=== PATIENT | female | born 1960 | race Caucasian/White ===

== ENCOUNTER 2017-01-28 08:27 | Inpatient (IN) ==
--- NOTE | 2017-01-27 19:59 | Discharge Summary ---
<MerrypatricialluviaNoemi Evon - Last Filed: 01/27/17 19:55> Date of Encounter: 01/27/17 - Discharge Diagnosis (1) Rotator cuff arthropathy Priority: Primary Status: Acute Qualifiers: Laterality: left Qualified Code(s): M12.812 - Other specific arthropathies , not elsewhere classified, left shoulder (2) HTN (hypertension) Priority: Secondary Status: Chronic Qualifiers: Hypertension type: essential hypertension Qualified Code(s): I10 - Essential (primary) hypertension (3) Obesity Priority: Secondary Status: Chronic Qualifiers: Obesity type: unspecified obesity type Obesity severity: unspecified obesity severity Qualified Code(s): E66.9 - Obesity, unspecified (4) Tobacco use Priority: Secondary Status: Chronic - Discharge Medications Home Medications: OxyCODONE Immed Rel [Roxicodone 5 MG] 5 - 10 mg PO Q6HR PRN #40 tablet 01/27/17 [Rx] Bupropion HCl [Wellbutrin Xl] 300 mg PO DAILY 01/28/17 [History] FLUoxetine HCl [Prozac] 40 mg PO DAILY 01/28/17 [History] Furosemide [Lasix] 20 mg PO DAILY 01/28/17 [History] Lisinopril [Zestril] 20 mg PO DAILY 01/28/17 [History] Metoprolol XL (24 HR) Succ [Toprol Xl] 50 mg PO DAILY 01/28/17 [History] Naproxen [Naprosyn] 500 mg PO BID 01/28/17 [History] hydrOXYzine HCl [Hydroxyzine HCl] 50 mg PO BID PRN 01/28/17 [History] Allergies/Adverse Reactions: Allergies No Known Allergies Allergy (Verified 01/28/17 09:03) Primary care physician: Finesse Dunlap MD - Patient Status Disposition: Home, Self-Care Condition: Good - Discharge Instructions Follow Up With: Finesse Dunlap MD [Primary Care Provider] - - Hospital Course Hospital course: Ms. Garcia is a 56 year old female - Time Spent with Patient Total time spent providing and/or coordinating discharge services: <Eddie Block - Last Filed: 01/29/17 06:25> Date of Encounter: 01/29/17 Time of Encounter: 06:25 - Discharge Diagnosis (1) Rotator cuff arthropathy Priority: Primary Status: Acute Qualifiers: Laterality: left Qualified Code(s): M12.812 - Other specific arthropathies , not elsewhere classified, left shoulder (2) HTN (hypertension) Priority: Secondary Status: Chronic Qualifiers: Hypertension type: essential hypertension Qualified Code(s): I10 - Essential (primary) hypertension (3) Obesity Priority: Secondary Status: Chronic Qualifiers: Obesity type: unspecified obesity type Obesity severity: unspecified obesity severity Qualified Code(s): E66.9 - Obesity, unspecified (4) Tobacco use Priority: Secondary Status: Chronic (5) Fracture 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 Garcia is a 56 year old female The patient had an uneventful postoperative course. They received antibiotics and physical therapy and were discharged in stable condition. There will follow -up in the office in 2 weeks. Aspirin DVT prophylaxis - Time Spent with Patient Total time spent providing and/or coordinating discharge services:
[2017-01-28] MEDS ORDERED: Albuterol 2.5 MG/3 ML NEBULIZER IH ONE (08:48)
[2017-01-28] MEDS ORDERED: CeFAZolin Pre 2,000 MG/100 ML 2,000 MG/100 ML BAG IVPB ONE (08:48)
[2017-01-28] MEDS ORDERED: Ringers Solution, Lactated 1,000 ML IVC SCH (09:00)
[2017-01-28] MEDS ORDERED: Famotidine 20 MG/2 ML VIAL IVP ONE (09:01)
[2017-01-28] MEDS ORDERED: Gabapentin 300 MG CAPSULE PO ONE (09:01)
--- NOTE | 2017-01-28 09:02 | History & Physical Report ---
Date of Encounter: 01/28/17 Time of Encounter: 09:02 24 Hour HP Update - Instructions Instructions: If the History and Physical is less than 30 days old and was completed prior to A.M. admission and or procedure and has NOT been updated on calendar day of procedure please complete this update prior to performing procedure. - Update Patient reports changes in Medical Condition: No Changes in examination, assessment, or condition: No Changes in Medication: No Preop tests/diagnostics Reviewed: Yes Surgery Remains Indicated: Yes Consent for Planned Operative Procedure(s) Verified: Yes - Pre-Operative Checklist Preoperative Checklist Indicated: No Prophylactic Antibiotic Ordered: Yes Is VTE Prophylaxis Indicated?: Yes
--- NOTE | 2017-01-28 09:28 | Anesthesia Evaluation PreOp ---
Date of Encounter: 01/28/17 Time of Encounter: 09:25 - Past History Planned Operation: Left Shoulder Replacement, Removal Hardware Cardiac History: HTN, Hyperlipidemia Pulmonary History: Denies Any Significant HX CAD DRAFTER History: Denies Any Significant HX Other Medical History: Other (Depression, Morbid Obesity, Bipolar) Anesthesia History: No Prior Anesthetic Complications : No Alcohol Use: none Drug use: none Medications and Allergies OxyCODONE Immed Rel [Roxicodone 5 MG] 5 - 10 mg PO Q6HR PRN #40 tablet 01/27/17 [Rx] Bupropion HCl [Wellbutrin Xl] 300 mg PO DAILY 01/28/17 [History] FLUoxetine HCl [Prozac] 40 mg PO DAILY 01/28/17 [History] Furosemide [Lasix] 20 mg PO DAILY 01/28/17 [History] Lisinopril [Zestril] 20 mg PO DAILY 01/28/17 [History] Metoprolol XL (24 HR) Succ [Toprol XL] 50 mg PO DAILY 01/28/17 [History] Naproxen [Naprosyn] 500 mg PO BID 01/28/17 [History] hydrOXYzine HCl [Hydroxyzine HCl] 50 mg PO BID PRN 01/28/17 [History] Allergies No Known Allergies Allergy (Verified 01/28/17 09:03) - Meds/Allergy Pre-op Review Medications Reviewed: Yes Allergies Reviewed: Yes Beta Blockers on Current Med List: Yes (Took Metoprolol today 0600) Anesthesia Results - Labs Laboratory Tests 01/21/17 01/21/17 10:51 10:51 Hgb 13.7 Hct 44.3 Plt Count 332 Sodium 136 Potassium 4.6 H BUN 21 H Creatinine 0.83 - Imaging EKG: report reviewed (SR) Anesthesia Exam O2 Sat Height 1.45 m Height 1.45 m Height 1.45 m Weight 83.461 kg Weight 83.461 kg Weight 83.461 kg O2 Sat by Pulse Oximetry 96 Vital Signs Temp Pulse Resp BP Pulse Ox 97.8 F 65 18 152/76 96 01/28/17 08:44 01/28/17 08:44 01/28/17 08:44 01/28/17 08:44 01/28/17 08:44 Height: 4'9 Weight: 186 lbs NPO (# of Hours): MN Pain Scale: 0 - HEENT Pupil (Motor): Pupils equal, EOMI Mallampati: II Teeth: Normal Oral Opening: Greater than 3 - CAD DRAFTER LOC: Oriented CAD DRAFTER Motor: Normal RUE, Normal LUE, Normal RLE, Normal LLE, Normal Face CAD DRAFTER Sensory: Normal: RUE, LUE, RLE, LLE, Face - Cardiac Rhythm: Regular Murmur: None JVD: No Carotid Bruit: No - Pulmonary Breath Sounds: bilateral Clear Respiratory Effort: Symmetrical Anesthesia Assess/Plan ASA Score: 3 (HTN Morbid Obesity Bipolar) Modified Kayleigh Scale for Level of Consciousness: Cooperative, oriented, and tranquil Anesthetic Plan: General, Regional Monitoring Plan: Standard Monitors Recovery Plan: PACU (Discussed GA and RA, agrees to proceed)
[2017-01-28] MEDS ORDERED: Tetracaine/PF 20 MG/2 ML AMPUL ONE (10:28)
[2017-01-28] MEDS ORDERED: ROPIVACAINE HCL/PF 0.5% 30 ML VIAL ONE (10:28)
[2017-01-28] MEDS ORDERED: Lidocaine -MPF 2% 2 ML VIAL ONE (11:27)
[2017-01-28] MEDS ORDERED: Dexamethasone 4 MG/ML VIAL ONE (11:27)
[2017-01-28] MEDS ORDERED: Ondansetron 4 MG/2 ML VIAL ONE (11:27)
[2017-01-28] MEDS ORDERED: EPHEDrine 50 MG/ML VIAL ONE (11:27)
[2017-01-28] MEDS ORDERED: *HR* Propofol 200 MG/20 ML VIAL IVP ONE (11:27)
--- NOTE | 2017-01-28 11:33 | Anesthesia Procedures ---
Date of Encounter: 01/28/17 Time of Encounter: 10:50 Procedures: Anesthesia - Nerve Block Procedure Date: 01/28/17 Time: 10:50 Allergies/Adv Reactions: nkda Pre-op Diagnosis: L shoulder RTC arthropathy Surgical Procedure: L TSR, Reverse--Removal of Hardware (synthetic) Checklist: Correct Patient Identifier, Correct procedure, History checked Correct side: Left Blood Thinner: No Monitor Applied: EKG, BP, Pulse Oximetry Supplemental Oxygen via Nasal Cannula (L/min): 3 Indication: Post Op Analgesia (requested by Dr. Block) Pre-op Neuro Deficits: No Block Type: Supraclavicular, Other (ICB, SCP) Catheter placed: No Sterile Technique: Yes Ultrasound used: Yes Anatomy identified: Yes Visual spread of Local: Yes Neuro Stimulation: No Blood on Needle Aspiration: No Smooth Injection of Local: Yes Pain with Injection of Local: No Prep: Chlorhexadine Needle: 22 x 50 mm Stimuplex Local: 0.25% Bupivicaine w/Clonidine 20 mcg/cc (10mL for SCP; 10mL of ICB), Tetracaine (2mL 1% for supraclavicular n.), Ropivacaine (30mL 0.5% for supraclavicular n.) Number of Attempts: 1 Complications: None/effective block Vitals: 3 Vital Signs Time pre-procedure post-procedure BP 140/64 137/68 Pulse 56 56 Resp 15 15 O2 Sat 99 99
[2017-01-28] MEDS ORDERED: Ondansetron 4 MG/2 ML VIAL IVP PRN ×2 (11:34→13:01)
[2017-01-28] MEDS ORDERED: *HR* Labetalol 100 MG/20 ML MDV IVP PRN (11:34)
[2017-01-28] MEDS ORDERED: *HR* HYDROmorphone (PF) 1 MG/ML SYRINGE IVP PRN ×2 (11:34→13:01)
--- NOTE | 2017-01-28 11:56 | Orthopedic Operative Note ---
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 1 6.5 screw, 36 central glenosphere, 5 humeral stem, poly insert 3 Exam Under anesthesia: Full motion no instability Procedural Notes: Patient had a malunion of the greater tuberosity with no cuff intact. Operative procedure: The patient was brought to the operating room and placed on the operating room table. After general anesthesia was administered the operative shoulder was examined. Findings were noted. The patient was placed in the modified beachchair position. All pressure points were padded appropriately. And the head was stabilized in the neutral position. The operative extremity was prepped and draped in the sterile surgical fashion. The patient received IV antibiotics prior to skin incision. A standard deltopectoral approach was made to the operative shoulder. Incision was made to the skin and subcutaneous tissue,hemo stasis was obtained with Bovie cautery. Using careful blunt dissection the cephalic vein was identified and mobilized medially. The deltopectoral interval was developed and the clavipectoral fascia was incised. Was brought into internal rotation the deltoid was elevated up through the interval between the deltoid and the humerus. Exposing the plate. All screws and the plate were removed without incident. Attention was then turned to the reverse shoulder replacement. The subscap was released off the lesser tuberosity and tagged with #2 FiberWire suture the subscap was irreparable. The humerus was dislocated patient noted to have irreparable tear supraspinatus tendon as well as a malunion of the greater tuberosity., and the humeral cut was made along the anatomic neck. Anterior and posterior Bankart retractors were placed to expose the glenoid. The glenoid guide was seated and the centering hole was made. It was reamed with the appropriate reamer. The small baseplate was seated and secured with (2) 4.5 screws and one 6.5 screw. The baseplate was irrigated and dried and the 36 central Glenosphere was seated and secured with the Myrick taper. The Myrick taper was tested and found to be secure the humerus was redislocated and prepared with the diaphyseal reamers, followed by a broaching process up to the appropriate size 5 in the patient's anatomic version. The metaphyseal reamer was then utilized. Trial reduction found the shoulder to be relocatable. Trial components were removed. The appropriate 5 stem was impacted in place in the patient's anatomic version. Trial reduction found the shoulder to be relocatable and stable with the appropriate 3 Trial component was removed and the 3 Daxa was seated and secured the shoulder was reduced. The shoulder had excellent motion and excellent stability and no evidence of dislocation. The deep tissue was irrigated with pulse irrigation. The deltopectoral interval was closed with a running #1 PDS suture, subcutaneous tissue was irrigated and closed with 0 PDS suture, the skin was closed with Dermabond. The patient was placed in a sterile dressing, abduction brace and extubated. The patient was then transferred to the recovery room in stable condition. Anesthesia: AJAY Surgeon: Eddie Block Ironer Or Presser: Noemi Adhikari Condition: stable Disposition: PACU
[2017-01-28] MEDS: Ringers Solution, Lactated 1,000 ML IVC SCH ×2 (12:50→16:23)
[2017-01-28 12:52] LABS: Hematocrit 34.8 % (35.3-44.9)
--- NOTE | 2017-01-28 12:58 | Anesthesia Evaluation Post Op ---
Date of Encounter: 01/28/17 Time of Encounter: 13:00 - Vital Signs Vital Signs: Vital Signs/O2 Sat/Glucose, Most Current Temp Pulse Resp BP Pulse Ox 01/28/17 12:41 97.9 F 57 16 117/66 94 01/28/17 12:31 61 16 136/93 93 01/28/17 12:21 58 16 128/65 95 01/28/17 12:11 98.4 F 65 18 137/87 94 01/28/17 10:55 55 16 137/68 100 01/28/17 10:46 53 16 140/64 100 01/28/17 10:35 58 18 130/75 100 - Lungs Lungs: Clear Ascult./Percussion - Airway Airway: Non-obstructed - Cardiovascular Regular Rate - Mental Status Mental Status: Alert & Oriented, Answers Appropriately - Pain Pain Scale: 0 - Nausea Vomiting Nausea Vomiting: Not Present - Hydration Hydration: Ice chips - Discharge PostOp Status: Transfer Patient to floor
[2017-01-28] MEDS ORDERED: MOM Conc 10 ML UD.LIQ PO PRN (13:01)
[2017-01-28] MEDS ORDERED: *HR* OxyCODONE Immed Rel 5 MG TABLET PO PRN (13:01)
[2017-01-28] MEDS ORDERED: hydrOXYzine pamoate 25 MG CAPSULE PO PRN (13:01)
[2017-01-28] MEDS ORDERED: Temazepam 15 MG CAPSULE PO PRN (13:01)
[2017-01-28] MEDS ORDERED: Sennosides 8.6 MG TABLET PO PRN (13:01)
[2017-01-28] MEDS ORDERED: Naloxone 0.4 MG/ML INJ IVP PRN (13:01)
[2017-01-28] MEDS: ceFAZolin 2,000 MG in D5% in Water 100 ML IVPB SCH (16:20)
[2017-01-28] MEDS ORDERED: *HR* Enoxaparin 30 MG/0.3 ML SYRINGE SQ SCH (18:00)
[2017-01-28] MEDS: *HR* Enoxaparin 30 MG/0.3 ML SYRINGE SQ SCH (18:01)
[2017-01-29] MEDS: ceFAZolin 2,000 MG in D5% in Water 100 ML IVPB SCH (00:13)
[2017-01-29 05:01] LABS: Hematocrit 32.9 % (35.3-44.9); Hemoglobin 10.7 g/dL (11.5-15.4)
[2017-01-29] MEDS: *HR* Enoxaparin 30 MG/0.3 ML SYRINGE SQ SCH (06:17)
[2017-01-29] MEDS: Ringers Solution, Lactated 1,000 ML IVC SCH (06:19)
--- NOTE | 2017-01-29 06:26 | Orthopedics Progress Note ---
Date of Encounter: 01/29/17 Time of Encounter: 06:26 - Assessment and Plan (1) Rotator cuff arthropathy Current Visit: Yes Status: Acute Qualifiers: Laterality: left Qualified Code(s): M12.812 - Other specific arthropathies , not elsewhere classified, left shoulder (2) HTN (hypertension) Current Visit: Yes Status: Chronic Qualifiers: Hypertension type: essential hypertension Qualified Code(s): I10 - Essential (primary) hypertension (3) Obesity Current Visit: Yes Status: Chronic Qualifiers: Obesity type: unspecified obesity type Obesity severity: unspecified obesity severity Qualified Code(s): E66.9 - Obesity, unspecified (4) Tobacco use Current Visit: Yes Status: Chronic (5) Fracture of proximal end of left humerus with malunion Current Visit: Yes Status: Acute Qualifiers: Encounter type: subsequent encounter Fracture type: closed Fracture morphology: other fracture Fracture alignment: displaced Qualified Code(s): S42.292P - Other displaced fracture of upper end of left humerus, subsequent encounter for fracture with malunion Subjective Interval history: Patient was seen this morning doing well without complaints. Afebrile vital signs stable. Operative extremity: Neurovascularly intact Dressing clean dry and intact Calves nontender Assessment and plan: Continue with postoperative care Hematocrit 32.9 discharged today Objective Vital signs: Vital Signs Temp Pulse Resp BP Pulse Ox 01/29/17 05:01 98.4 F 59 18 137/76 97 01/28/17 23:27 98.4 F 67 16 135/67 97 01/28/17 21:19 96 01/28/17 18:36 98.1 F 64 17 138/80 96 01/28/17 15:50 98 F 60 16 126/74 97 01/28/17 14:50 97.5 F L 63 16 128/77 95 01/28/17 13:50 97.8 F 59 16 110/76 95 01/28/17 13:20 97.7 F 58 16 116/72 95 01/28/17 12:50 97.9 F 58 16 121/58 96 01/28/17 12:41 97.9 F 57 16 117/66 94 01/28/17 12:31 61 16 136/93 93 01/28/17 12:21 58 16 128/65 95 01/28/17 12:11 98.4 F 65 18 137/87 94 01/28/17 10:55 55 16 137/68 100 01/28/17 10:46 53 16 140/64 100 01/28/17 10:35 58 18 130/75 100 01/28/17 08:44 97.8 F 65 18 152/76 96 Intake and Output 01/28/17 01/28/17 01/29/17 15:59 23:59 07:59 Intake Total 300 / 300 Output Total 100 / 100 Balance -100 / -100 300 / 300 Intake: IV Fluids 300 / 300 Lactated Ringers 1,000 ML 200 / 200 @ 75 mls/hr IVC .[id number] AALIYAH Rx#:[id number] Ancef 2,000 MG In 100 / 100 Dextrose 5% 100 ML @ 200 mls/hr IVPB Q8HR AALIYAH Rx#: [id number] Output: Estimated Blood Loss 100 / 100 Other: # Voids 1 1 Weight 83.461 kg - Labs CBC & BMP: 01/29/17 04:21 Labs: Abnormal lab results Hgb 10.7 g/dL (11.5-15.4) L 01/29/17 04:21 Hct 32.9 % (35.3-44.9) L 01/29/17 04:21 - VTE Documentation of Mechanical Device: Venous foot pump, device Consult Discharge Plan - Plan Referrals: Finesse Dunlap MD [Primary Care Provider] -
[2017-01-29 07:24] VITALS: BP 132/82
[2017-01-29] MEDS: *HR* OxyCODONE Immed Rel 5 MG TABLET PO PRN ×2 (08:41→12:42)
[2017-01-29] MEDS ORDERED: Metoprolol XL (24 HR) Succ 50 MG TAB.ER.24H PO SCH (09:00)
[2017-01-29] MEDS ORDERED: BuPROPion XL (24 HR) 150 MG TABLET PO SCH (09:00)
[2017-01-29] MEDS ORDERED: FLUoxetine 20 MG CAPSULE PO SCH (09:00)
[2017-01-29] MEDS ORDERED: Lisinopril 20 MG TABLET PO SCH (09:00)
[2017-01-29] MEDS ORDERED: Furosemide 20 MG TABLET PO SCH (09:00)
== END 2017-01-29 12:57 | disposition home or self-care (01) | DRG 483 ==
LOC: SAMDAY 08:27 → 3NENU 12:45
PROVIDERS: ADMIT Orthopaedic Surgery; ATTEND Orthopaedic Surgery

== ENCOUNTER 2017-09-12 11:42 | Inpatient (IN) ==
--- NOTE | 2017-09-12 08:11 | Discharge Summary ---
Date of Encounter: 09/13/17 Time of Encounter: 06:25 - Discharge Diagnosis (1) Loosening of total shoulder replacement Priority: Primary Status: Acute Qualifiers: Encounter type: subsequent encounter Qualified Code(s): T84.038D - Mechanical loosening of other internal prosthetic joint, subsequent encounter; Z96.619 - Presence of unspecified artificial shoulder joint; Z96.619 - Presence of unspecified artificial shoulder joint (2) Status post total shoulder arthroplasty Priority: Secondary Status: Acute Qualifiers: Laterality: left Qualified Code(s): Z96.612 - Presence of left artificial shoulder joint (3) HTN (hypertension) Priority: Secondary Status: Chronic Qualifiers: Hypertension type: essential hypertension Qualified Code(s): I10 - Essential (primary) hypertension (4) Tobacco use Priority: Secondary Status: Chronic (5) Obesity (BMI 35.0-39.9 without comorbidity) Priority: Secondary Status: Chronic - Discharge Medications Home Medications: Bupropion HCl [Wellbutrin Xl] 300 mg PO DAILY 01/28/17 [History] Furosemide [Lasix] 20 mg PO DAILY 01/28/17 [History] Lisinopril [Zestril] 20 mg PO DAILY 01/28/17 [History] Metoprolol XL (24 HR) Succ [Toprol Xl] 50 mg PO DAILY 01/28/17 [History] hydrOXYzine HCl [Hydroxyzine HCl] 50 mg PO BID PRN 01/28/17 [History] FLUoxetine HCl [Fluoxetine HCl] 40 mg PO DAILY 09/12/17 [History] Gabapentin [Neurontin] 100 mg PO TID 09/12/17 [History] OxyCODONE Immed Rel [Roxicodone 5 MG] 5 mg PO Q4HR PRN #24 tablet 09/12/17 [Rx] Quetiapine Fumarate [Seroquel] 50 mg PO DAILY 09/12/17 [History] Allergies/Adverse Reactions: 3 Allergy/AdvReac Type Severity Reaction Status Date / Time No Known Allergies Allergy Verified 09/12/17 12:03 Primary care physician: Finesse Dunlap MD - Patient Status Disposition: Home, Self-Care Condition: Good Functional capacity at discharge: independent ambulation Overall status at discharge: patient is progressing back to baseline - Discharge Instructions Follow Up With: Finesse Dunlap MD [Primary Care Provider] - - Hospital Course Hospital course: Ms. Garcia is a 57 year old female Status post revision left shoulder surgery The patient had an uneventful postoperative course. They received antibiotics and physical therapy and were discharged in stable condition. There will follow -up in the office in 2 weeks. - Time Spent with Patient Total time spent providing and/or coordinating discharge services:
--- NOTE | 2017-09-12 11:54 | Anesthesia Evaluation PreOp ---
Date of Encounter: 09/12/17 Time of Encounter: 12:15 - Past History Planned Operation: left total shoulder revision Cardiac History: HTN, Hyperlipidemia Pulmonary History: Smoker STOCKBROKING DEALER History: Other (bipolar) Other Medical History: Other (morbid obesity) Anesthesia History: No Prior Anesthetic Complications, Past Anesthesia (left TSA ) : No Alcohol Use: none Drug use: none Medications and Allergies Bupropion HCl [Wellbutrin Xl] 300 mg PO DAILY 01/28/17 [History] Furosemide [Lasix] 20 mg PO DAILY 01/28/17 [History] Lisinopril [Zestril] 20 mg PO DAILY 01/28/17 [History] Metoprolol XL (24 HR) Succ [Toprol Xl] 50 mg PO DAILY 01/28/17 [History] hydrOXYzine HCl [Hydroxyzine HCl] 50 mg PO BID PRN 01/28/17 [History] FLUoxetine HCl [Fluoxetine HCl] 40 mg PO DAILY 09/12/17 [History] Gabapentin [Neurontin] 100 mg PO TID 09/12/17 [History] OxyCODONE Immed Rel [Roxicodone 5 MG] 5 mg PO Q4HR PRN #24 tablet 09/12/17 [Rx] Quetiapine Fumarate [Seroquel] 50 mg PO DAILY 09/12/17 [History] 3 Allergy/AdvReac Type Severity Reaction Status Date / Time No Known Allergies Allergy Verified 09/12/17 12:03 - Meds/Allergy Pre-op Review Medications Reviewed: Yes Allergies Reviewed: Yes Beta Blockers on Current Med List: Yes Anesthesia Results - Labs Laboratory Tests 09/10/17 09/10/17 09/10/17 11:22 11:22 11:22 Hgb 13.1 Hct 41.9 Plt Count 456 H PT 11.9 INR 1.1 APTT 29.1 Sodium 139 Potassium 3.9 BUN 16 Creatinine 0.68 Anesthesia Exam - HEENT Pupil (Motor): EOMI Mallampati: II Teeth: Normal Oral Opening: Greater than 3 - STOCKBROKING DEALER LOC: Oriented STOCKBROKING DEALER Motor: Normal RUE, Normal LUE, Normal RLE, Normal LLE, Normal Face STOCKBROKING DEALER Sensory: Normal: RUE, LUE, RLE, LLE, Face - Cardiac Rhythm: Regular Murmur: None - Pulmonary Breath Sounds: bilateral Clear Respiratory Effort: Symmetrical Anesthesia Assess/Plan ASA Score: 3 Modified Kayleigh Scale for Level of Consciousness: Cooperative, oriented, and tranquil Anesthetic Plan: General (with block) Monitoring Plan: Standard Monitors Recovery Plan: PACU (agrees to GA and block)
[2017-09-12] MEDS ORDERED: Lidocaine -MPF 2% 2 ML VIAL ONE (12:03)
[2017-09-12] MEDS ORDERED: Ondansetron 4 MG/2 ML VIAL ONE (12:03)
[2017-09-12] MEDS ORDERED: *HR* Succinylcholine 200 MG/10 ML VIAL IVP ONE (12:03)
[2017-09-12] MEDS ORDERED: *HR* FentaNYL (PF) 100 MCG/2 ML VIAL ONE (12:03)
[2017-09-12] MEDS ORDERED: *HR* Propofol 200 MG/20 ML VIAL IVP ONE (12:03)
[2017-09-12] MEDS ORDERED: *HR* Midazolam HCl 2 MG/2 ML VIAL ONE (12:03)
[2017-09-12] MEDS ORDERED: CeFAZolin Syr 2,000MG/20 ML 2,000 MG/20 ML SYRINGE IVPB ONE (12:04)
[2017-09-12] MEDS ORDERED: Dexamethasone 4 MG/ML VIAL ONE ×2 (12:05→14:44)
[2017-09-12] MEDS ORDERED: Bupivacaine/Clonidine Syringe 1 EACH SYRINGE ONE (12:08)
[2017-09-12] MEDS ORDERED: ROPIVACAINE HCL/PF 0.5% 30 ML VIAL ONE (12:08)
[2017-09-12] MEDS ORDERED: Ringers Solution, Lactated 1,000 ML IVC SCH ×2 (12:15→17:00)
[2017-09-12] MEDS ORDERED: *HR* Promethazine 25 MG/ML VIAL IVP PRN (12:17)
[2017-09-12] MEDS ORDERED: *HR* HYDROmorphone (PF) 1 MG/ML SYRINGE IVP PRN ×2 (12:17→17:00)
[2017-09-12] MEDS ORDERED: Ethanol\\Acetic Acid\\Na Ace\\Ben 1,000 ML IRRIG.SOLN IR ONE (12:25)
--- NOTE | 2017-09-12 12:36 | History & Physical Report ---
Date of Encounter: 09/12/17 Time of Encounter: 12:35 24 Hour HP Update - Instructions Instructions: If the History and Physical is less than 30 days old and was completed prior to A.M. admission and or procedure and has NOT been updated on calendar day of procedure please complete this update prior to performing procedure. - Update Patient reports changes in Medical Condition: No Changes in examination, assessment, or condition: No Changes in Medication: No Preop tests/diagnostics Reviewed: Yes Surgery Remains Indicated: Yes Consent for Planned Operative Procedure(s) Verified: Yes - Pre-Operative Checklist Preoperative Checklist Indicated: No Prophylactic Antibiotic Ordered: Yes Is VTE Prophylaxis Indicated?: Yes
--- NOTE | 2017-09-12 13:38 | Anesthesia Procedures ---
Date of Encounter: 09/12/17 Time of Encounter: 13:30 Procedures: Anesthesia - Nerve Block Procedure Date: 09/12/17 Time: 13:30 Surgical Procedure: left total shoulder revision Checklist: Correct Patient Identifier, Correct procedure, History checked Correct side: Left Blood Thinner: No Monitor Applied: EKG, BP, Pulse Oximetry Supplemental Oxygen via Nasal Cannula (L/min): 2 Sedation: Versed (mg): 2 Sedation: Fentanyl (mcg): 100 Indication: Post Op Analgesia Pre-op Neuro Deficits: No Block Type: Supraclavicular, Other (ICB/ICP) Catheter placed: No Sterile Technique: Yes Ultrasound used: Yes Anatomy identified: Yes Visual spread of Local: Yes Neuro Stimulation: Yes Nerve Stimulator Range: 0.2 - 0.4 mA Blood on Needle Aspiration: No Smooth Injection of Local: Yes Pain with Injection of Local: No Prep: Chlorhexadine Needle: 22 x 50 mm Stimuplex Local: 0.25% Bupivicaine w/Clonidine 20 mcg/cc (10 ml), Ropivacaine (0.5% with 8 of decadron) Volume (cc): 40 total Number of Attempts: 1 Complications: None/effective block Vitals: vss
[2017-09-12] MEDS ORDERED: Albuterol 2.5 MG/3 ML NEBULIZER ONE (13:47)
[2017-09-12] MEDS ORDERED: Lidocaine -MPF 4% 5 ML AMPUL ONE (14:44)
[2017-09-12] MEDS ORDERED: EPHEDrine 50 MG/ML VIAL ONE (15:05)
[2017-09-12] MEDS ORDERED: Ketorolac 30 MG/ML VIAL ONE (15:31)
--- NOTE | 2017-09-12 15:50 | Orthopedic Operative Note ---
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 Post-op diagnosis: same (Significant glenoid insufficiency posterior superior) Procedure: Procedure: Revision left total shoulder replacement reverse to left cuff tear arthropathy hemiarthroplasty Estimated blood loss: 100 cc Hardware: Metal and polyethylene replacement: 6 humeral stem, 36 neutral cup, 36 CA humeral head adapter, 44 x 17 cuff tear arthropathy head. Exam Under anesthesia: Full motion with no stability Procedural Notes: Patient with loose glenoid complete posterior superior insufficiency of glenoid, glenoid unable to support a new glenoid baseplate. Operative procedure: The patient was brought to the operating room and placed on the operating room table. After general anesthesia was administered the operative shoulder was examined. Findings were noted. The patient was placed in the modified beachchair position. All pressure points were padded appropriately. And the head was stabilized in the neutral position. The operative extremity was prepped and draped in the sterile surgical fashion. The patient received IV antibiotics prior to skin incision. A standard deltopectoral approach was made to the operative shoulder. Incision was made through the old incision, through the skin and subcutaneous tissue, hemo stasis was obtained with Bovie cautery. Using careful blunt dissection the deltopectoral interval was developed, the scar tissue around the prosthesis was excised cultures were obtained. The humerus was dislocated and the humeral component was removed without significant difficulty. The clonus or was removed , the glenoid baseplate the baseplate was loose inferior screws broken. Baseplate and superior screw removed without incident as well as a central screw. Patient had a large cavitary defect posterior superior. Extensive soft tissue debridement was performed. An attempt was made to reposition the baseplate inferiorly fluoroscopic confirmation of the position the baseplate found to be insufficient for support and longevity. This is also confirmed with direct inspection. Decision at this point was made to convert to a cuff tear arthropathy head to avoid further glenoid failure. The bladder was irrigated and the defect was packed with DBX putty. The humerus was broached to a 6 in 20 degrees retroversion trial reduction with the 44 x 17 head revealed good stability trials were removed real implants were impacted in place shoulder was reduced patient good stability. The deep tissue was irrigated with pulse irrigation with Betadine as well as an antibacterial solution. T The deltopectoral interval was closed with a running #1 PDS suture, subcutaneous tissue was irrigated and closed with 0 PDS suture, the skin was closed with skin scooby. The patient was placed in a sterile dressing, abduction brace and extubated. The patient was then transferred to the recovery room in stable condition. Anesthesia: GETA Surgeon: Eddie Block Was there an family practice physician assistant present: No Estimated blood loss (cc): 100 Condition: stable Disposition: PACU
--- NOTE | 2017-09-12 16:23 | Anesthesia Evaluation Post Op ---
Date of Encounter: 09/12/17 Time of Encounter: 16:22 - Vital Signs Vital Signs: Vital Signs/O2 Sat, Most Current Temp Pulse Resp BP Pulse Ox 97.7 F 66 15 121/78 94 09/12/17 15:55 09/12/17 16:10 09/12/17 16:10 09/12/17 16:10 09/12/17 16:10 - Airway Airway: Non-obstructed - Cardiovascular Regular Rate - Mental Status Mental Status: Alert & Oriented, Answers Appropriately - Pain Pain Scale: 0 Pain Scale used: Numeric (1 - 10) - Nausea Vomiting Nausea Vomiting: Not Present - Hydration Hydration: Ice chips, Has not voided - Discharge PostOp Status: Transfer Patient to floor
[2017-09-12] MEDS ORDERED: MOM Conc 10 ML UD.LIQ PO PRN (17:00)
[2017-09-12] MEDS ORDERED: Sennosides 8.6 MG TABLET PO PRN (17:00)
[2017-09-12] MEDS ORDERED: *HR* OxyCODONE Immed Rel 5 MG TABLET PO PRN ×2 (17:00)
[2017-09-12] MEDS ORDERED: hydrOXYzine pamoate 25 MG CAPSULE PO PRN (17:00)
[2017-09-12] MEDS ORDERED: Naloxone 0.4 MG/ML INJ IVP PRN (17:00)
[2017-09-12] MEDS ORDERED: Ondansetron 4 MG/2 ML VIAL IVP PRN (17:00)
[2017-09-12] MEDS ORDERED: Temazepam 15 MG CAPSULE PO PRN (17:00)
[2017-09-12] MEDS ORDERED: *HR* Enoxaparin 30 MG/0.3 ML SYRINGE SQ SCH (18:00)
[2017-09-12] MEDS: *HR* Enoxaparin 30 MG/0.3 ML SYRINGE SQ SCH (18:22)
[2017-09-12] MEDS: Gabapentin 100 MG CAPSULE PO SCH ×2 (18:22→21:24)
[2017-09-12] MEDS: CeFAZolin Premix DUPLEX 2,000 MG/50 ML BAG IVPB SCH (21:25)
[2017-09-13] MEDS: *HR* Enoxaparin 30 MG/0.3 ML SYRINGE SQ SCH (04:51)
[2017-09-13] MEDS: CeFAZolin Premix DUPLEX 2,000 MG/50 ML BAG IVPB SCH (04:52)
--- NOTE | 2017-09-13 06:27 | Orthopedics Progress Note ---
Date of Encounter: 09/13/17 Time of Encounter: 06:26 - Assessment and Plan (1) Loosening of total shoulder replacement Current Visit: Yes Status: Acute Qualifiers: Encounter type: subsequent encounter Qualified Code(s): T84.038D - Mechanical loosening of other internal prosthetic joint, subsequent encounter; Z96.619 - Presence of unspecified artificial shoulder joint; Z96.619 - Presence of unspecified artificial shoulder joint (2) Status post total shoulder arthroplasty Current Visit: Yes Status: Acute Qualifiers: Laterality: left Qualified Code(s): Z96.612 - Presence of left artificial shoulder joint (3) HTN (hypertension) Current Visit: No Status: Chronic Qualifiers: Hypertension type: essential hypertension Qualified Code(s): I10 - Essential (primary) hypertension (4) Tobacco use Current Visit: No Status: Chronic (5) Obesity (BMI 35.0-39.9 without comorbidity) Current Visit: Yes Status: Chronic Subjective Interval history: Patient was seen this morning doing well without complaints. Afebrile vital signs stable. Operative extremity: Neurovascularly intact Dressing clean dry and intact Calves nontender Assessment and plan: Continue with postoperative care Discharge today Objective Vital signs: Vital Signs Temp Pulse Resp BP Pulse Ox 09/13/17 04:52 97.4 F L 76 18 128/78 96 09/13/17 00:20 97.8 F 68 18 116/69 92 09/12/17 19:45 98.3 F 78 16 122/76 96 09/12/17 19:09 97.7 F 70 17 115/71 94 09/12/17 18:52 98.6 F 74 17 108/73 93 09/12/17 17:50 97.6 F 70 15 129/82 93 09/12/17 17:23 97.9 F 71 16 129/76 95 09/12/17 17:11 97.9 F 71 16 129/76 95 09/12/17 16:54 97.7 F 70 14 128/76 94 09/12/17 16:30 98.0 F 69 16 113/71 96 09/12/17 16:20 98.0 F 66 14 111/76 95 09/12/17 16:10 66 15 121/78 94 09/12/17 16:00 67 18 136/63 92 09/12/17 15:55 97.7 F 73 20 151/82 97 09/12/17 14:11 74 168/90 98 09/12/17 13:59 77 153/101 95 09/12/17 13:44 74 14 158/105 93 09/12/17 13:14 68 16 136/98 96 09/12/17 12:07 99.0 F 69 18 130/68 95 09/12/17 12:06 99.0 F 69 18 130/68 95 Intake and Output 09/12/17 09/12/17 09/13/17 15:59 23:59 07:59 Intake Total 50 / 50 Output Total 100 / 100 Balance -100 / -100 50 / 50 Intake: IV Fluids 50 / 50 Ancef Premix DUPLEX 2,000 mg In 50 / 50 50 ml @ 100 mls/hr IVPB Q8H [facility] Rx#:[id number] Output: Estimated Blood Loss 100 / 100 Other: Weight 80.286 kg - Labs CBC & BMP: 09/12/17 16:21 - VTE Documentation of Mechanical Device: Venous foot pump, device Consult Discharge Plan - Plan Referrals: Finesse Dunlap MD [Primary Care Provider] -
[2017-09-13 08:40] LABS: Hematocrit 34.5 % (35.3-44.9); Hemoglobin 10.8 g/dL (11.5-15.4)
[2017-09-13] MEDS: Gabapentin 100 MG CAPSULE PO SCH (08:53)
[2017-09-13] MEDS ORDERED: Lisinopril 20 MG TABLET PO SCH (09:00)
[2017-09-13] MEDS ORDERED: Metoprolol XL (24 HR) Succ 50 MG TAB.ER.24H PO SCH (09:00)
[2017-09-13] MEDS ORDERED: FLUoxetine 20 MG CAPSULE PO SCH (09:00)
[2017-09-13] MEDS ORDERED: Furosemide 20 MG TABLET PO SCH (09:00)
[2017-09-13] MEDS ORDERED: BuPROPion XL (24 HR) 150 MG TABLET PO SCH (09:00)
[2017-09-13 11:11] VITALS: BP 110/74
== END 2017-09-13 12:11 | disposition home or self-care (01) | DRG 483 ==
LOC: SAMDAY 11:42 → 3NENU 17:04
PROVIDERS: ADMIT Orthopaedic Surgery; ATTEND Orthopaedic Surgery

== ENCOUNTER 2017-11-21 10:51 | Inpatient (IN) ==
--- NOTE | 2017-11-21 11:06 | Emergency Department Note ---
Disposition Clinical Impression: NSTEMI (non-ST elevated myocardial infarction), Respiratory distress, Bilateral pneumonia, Pleural effusion, Hypokalemia, Hypoxia Disposition: Admitted As Inpatient Condition: Fair Time of Disposition: 15:02 General Adult HPI - General Chief complaint: ED Chest Pain Stated complaint: Chest pain Time Seen by Provider: 11/21/17 10:56 Source: patient, EMS Mode of arrival: EMS Limitations: no limitations Nursing Notes Reviewed: Yes Vital Signs Reviewed: Yes - History of Present Illness HPI Narrative: 57-year-old female with significant past medical history of hypertension and tobacco abuse presenting to the emergency Department chief complaint of chest pain and shortness of breath. Patient states for the last week she has not been feeling well. She has been weak, had increased shortness of breath, fevers and chills. She has also had chest pain on exertion. Today she acutely started having more chest pain and worsening shortness of breath and decided to come to the emergency department for further evaluation. Patient denies any cardiac history. Denies any COPD or asthma. Denies needing oxygen at home. Pain Scale: 4 - Related Data Home Medications Medication Instructions Recorded Confirmed Bupropion HCl [Wellbutrin Xl] 300 mg PO DAILY 01/28/17 11/21/17 Furosemide [Lasix] 20 mg PO DAILY 01/28/17 11/21/17 Lisinopril [Zestril] 20 mg PO BID 01/28/17 11/21/17 Metoprolol XL (24 HR) Succ [Toprol 50 mg PO DAILY 01/28/17 11/21/17 Xl] hydrOXYzine HCl [Hydroxyzine HCl] 50 mg PO BID PRN 01/28/17 11/21/17 FLUoxetine HCl [Fluoxetine HCl] 40 mg PO DAILY 09/12/17 11/21/17 Gabapentin [Neurontin] 100 mg PO TID 09/12/17 11/21/17 Amoxicillin/Clavulanate [Augmentin] 875 mg PO BIDWM 11/21/17 11/21/17 Quetiapine Fumarate [SEROquel] 100 mg PO HS 11/21/17 11/21/17 Allergies Allergy/AdvReac Type Severity Reaction Status Date / Time No Known Allergies Allergy Verified 11/21/17 12:09 All systems ED: reviewed and negative except as stated. Constitutional: Reports: fever, chills, weakness Cardiovascular: Reports: chest pain Respiratory: Reports: cough, dyspnea Neurological: Reports: weakness Past Medical History - Past Medical History Attestation: Yes The following information was validated with the patient. Medical history: Reports: hypertension, other Surgical history: Reports: , cataract Psychiatric history: Reports: anxiety, bipolar, depression - Social History Smoking Status: Never smoker Smokeless Tobacco Status: No Alcohol use: Reports: none Drug use: Reports: none Physical Exam - General Limitations: no limitations General appearance: alert, in distress - Head Head exam: atraumatic, normocephalic, normal inspection - Eye Eye exam: Present: normal appearance. Absent: scleral icterus, conjunctival injection - ENT ENT exam: mucous membranes dry - Neck Neck exam: Present: normal inspection, full ROM. Absent: tenderness, meningismus - Chest Chest inspection: Present: normal inspection, symmetric chest wall rise. Absent : tenderness, rash - Respiratory Respiratory exam: Present: other (Decreased breath sounds bilaterally) - Cardiovascular Cardiovascular exam: Present: normal rhythm, tachycardia, normal heart sounds - Abdominal Exam Abdominal exam: Present: soft, Non-Tender. Absent: distention, guarding, rebound - Extremities Exam Extremities exam: Present: normal inspection, full ROM - Neurological Exam Neurological exam: Present: alert, oriented X3 - Psychiatric Psychiatric exam: Present: normal affect, normal mood - Skin Skin exam: Present: warm, dry Course Course Narrative: 57-year-old male presenting to the emergency Department chief complaint of chest pain and shortness of breath. Upon presentation patient was hypoxic at 85 %. Patient placed on Ventimask. 15 L. He should not went up to mid 90s. Patient tachycardic upon arrival. EKG shows no acute changes. Basic laboratory analysis including CBC, BMP, troponin, BNP completed. Chest x-ray also completed. Patient did have decreased breath sounds on examination and do an absent were given. Patient received full dose aspirin and 1 nitroglycerin and EMS. Patient's troponin elevated at 0.51. Repeat troponin completed an elevated more at 0.6. I spoke directly with tea tree farm worker on-call Dr. Bermudez who is aware of the case. He states since the patient is not having any active chest pain at this time no nitro drip as needed. He will not take the patient to Table Inspector at this time. Patient started on heparin drip. Patient has chest pain when she becomes active or exerts herself and sitting on the cot she has no chest pain at this time. Patient remained mildly hypoxic even with Ventimask. Patient agreed to try BiPAP. Patient placed on BiPAP and did well. ABG completed and showed mild alkalosis. Patient was taken off BiPAP and placed back on Ventimask at 12 L. Patient also hypokalemic her laboratory analysis. We will replete her via peripheral IV. Chest x-ray shows left-sided pleural effusion along with bilateral infiltrates most likely pneumonia. We will place the patient on Rocephin at this time. Patient also has extremely elevated BNP. Patient denies any history of CHF. At this time we will admit the patient to hospitalist service for an STEMI, pleural effusion, bilateral pneumonia, acute CHF, and hypoxia. Patient is alert and oriented 3 in the room. Stable vital signs at this time. Patient agrees with this plan. I spoke with the hospitalist on-call Dr. Salcido who agrees to accept the patient at this time. Vital Signs Temperature 98.5 F 11/21/17 10:58 Pulse Rate 102 11/21/17 10:58 Respiratory Rate 32 11/21/17 10:58 Blood Pressure 135/79 11/21/17 10:58 O2 Sat by Pulse Oximetry 82 11/21/17 10:58 Temperature 99.9 F H 11/23/17 04:00 Pulse Rate 82 11/23/17 06:00 Respiratory Rate 42 11/23/17 06:00 Blood Pressure 108/73 11/23/17 06:00 O2 Sat by Pulse Oximetry 85 11/23/17 06:00 Oxygen Delivery Oxygen Delivery Simple Mask Medical Decision Making - Medical Records Medical records reviewed: Yes I reviewed the patient's medical records. - Lab Data Lab results reviewed: Yes I reviewed the patient's lab results. Result diagrams: 11/23/17 00:58 11/23/17 00:58 Lab Results 11/21/17 11/21/17 11/21/17 Range/Units 11:15 11:15 11:15 WBC 19.4 H (4.3-11.1) K/mcL RBC 4.19 (3.82-4.97) M/mcL Hgb 10.7 L (11.5-15.4) g/dL Hct 33.3 L (35.3-44.9) % MCV 79.5 L (83.0-100.0) fL MCH 25.5 L (28.0-33.3) pg MCHC 32.1 (31.6-35.5) g/dL RDW 13.8 (11.5-14.5) % Plt Count 567 H (140-400) K/mcL MPV 9.2 L (9.4-12.4) fL Immature Gran % 1.3 (0-4) % Seg Neutrophils % 85.4 % Lymphocytes % 8.2 % Monocytes % 4.8 % Eosinophils % 0.0 % Basophils % 0.3 % Neutrophils # 16.6 H (1.6-8.9) K/mcL Lymphocytes # 1.6 (0.6-4.6) K/mcL Monocytes # 0.9 (0.0-1.3) K/mcL Eosinophils # 0.0 (0.0-0.6) K/mcL Basophils # 0.1 (0.0-0.2) K/mcL PT (9.4-12.1) Seconds INR APTT (26.0-36.0) Seconds Sample Site ABG pH (7.32-7.45) pH Units ABG pCO2 (35-45) mmHg ABG pO2 (85-104) mmHg ABG HCO3 (21-27) mEq/L ABG Total CO2 (20-26) mEq/L ABG O2 Saturation (95-98) % ABG Base Excess (-2 to 3) mEq/L Tomer Test O2 Delivery Device Blood Gas Modality Inspired O2 (1-15=lpm [id number]=%) Sodium 139 (136-145) mEq/L Potassium 2.7 L (3.5-5.1) mEq/L Chloride 104 (98-107) mEq/L Carbon Dioxide 23 (23-29) mEq/L BUN 12 (6-20) mg/dL Creatinine 0.55 L (0.60-1.20) mg/dL Est GFR ( Amer) > 60 (> 60) Est GFR (Non-Af Amer) > 60 (> 60) BUN/Creatinine Ratio 22 (6-26) Glucose 141 H (70-105) mg/dL Calculated Osmolality 290 (280-300) Lactic Acid 2.0 (0.5-2.2) mmol/L Calcium 9.0 (8.6-10.3) mg/dL Total Bilirubin 1.1 H (0.3-1.0) mg/dL Direct Bilirubin 0.4 H (0.0-0.2) mg/dL Indirect Bilirubin 0.7 (0.0-1.2) mg/dL AST 20 (13-39) Units/L ALT 12 (7-52) Units/L Alkaline Phosphatase 187 H (34-104) Units/L Troponin I 0.51 H* (< 0.04) ng/mL B-Natriuretic Peptide (Less than 100) pg/mL Serum Total Protein 7.2 (6.4-8.9) g/dL Albumin 3.4 L (3.5-5.7) g/dL Globulin 3.8 H (2.4-3.5) g/dL Albumin/Globulin Ratio 0.9 L (1.1-2.2) Urine Color (Yellow) Urine Clarity (Clear) Urine pH (5.0-8.0) pH Units Ur Specific [place] (1.010-1.025) Urine Protein (Neg-Trace) mg/dL Urine Glucose (UA) (Normal) mg/dL Urine Ketones (Negative) mg/dL Urine Blood (Negative) Urine Nitrite (Negative) Urine Bilirubin (Negative) Urine Urobilinogen (Normal) mg/dL Ur Leukocyte Esterase (Negative) Urine Microscopic RBC (0-3) per hpf Urine Microscopic WBC (0-3) per hpf Ur Squamous Epith Cells (None-Few) per lpf Urine Bacteria (None-Few) per hpf Hyaline Casts (None-Few) per lpf Ur Culture Indicated? (NO) 11/21/17 11/21/17 11/21/17 Range/Units 11:15 11:15 11:58 WBC (4.3-11.1) K/mcL RBC (3.82-4.97) M/mcL Hgb (11.5-15.4) g/dL Hct (35.3-44.9) % MCV (83.0-100.0) fL MCH (28.0-33.3) pg MCHC (31.6-35.5) g/dL RDW (11.5-14.5) % Plt Count (140-400) K/mcL MPV (9.4-12.4) fL Immature Gran % (0-4) % Seg Neutrophils % % Lymphocytes % % Monocytes % % Eosinophils % % Basophils % % Neutrophils # (1.6-8.9) K/mcL Lymphocytes # (0.6-4.6) K/mcL Monocytes # (0.0-1.3) K/mcL Eosinophils # (0.0-0.6) K/mcL Basophils # (0.0-0.2) K/mcL PT 13.5 H (9.4-12.1) Seconds INR 1.2 APTT 27.6 (26.0-36.0) Seconds Sample Site ABG pH (7.32-7.45) pH Units ABG pCO2 (35-45) mmHg ABG pO2 (85-104) mmHg ABG HCO3 (21-27) mEq/L ABG Total CO2 (20-26) mEq/L ABG O2 Saturation (95-98) % ABG Base Excess (-2 to 3) mEq/L Tomer Test O2 Delivery Device Blood Gas Modality Inspired O2 (1-15=lpm [id number]=%) Sodium (136-145) mEq/L Potassium (3.5-5.1) mEq/L Chloride (98-107) mEq/L Carbon Dioxide (23-29) mEq/L BUN (6-20) mg/dL Creatinine (0.60-1.20) mg/dL Est GFR ( Amer) (> 60) Est GFR (Non-Af Amer) (> 60) BUN/Creatinine Ratio (6-26) Glucose (70-105) mg/dL Calculated Osmolality (280-300) Lactic Acid (0.5-2.2) mmol/L Calcium (8.6-10.3) mg/dL Total Bilirubin (0.3-1.0) mg/dL Direct Bilirubin (0.0-0.2) mg/dL Indirect Bilirubin (0.0-1.2) mg/dL AST (13-39) Units/L ALT (7-52) Units/L Alkaline Phosphatase (34-104) Units/L Troponin I (< 0.04) ng/mL B-Natriuretic Peptide 2575 H (Less than 100) pg/mL Serum Total Protein (6.4-8.9) g/dL Albumin (3.5-5.7) g/dL Globulin (2.4-3.5) g/dL Albumin/Globulin Ratio (1.1-2.2) Urine Color Dark Yellow (Yellow) Urine Clarity Hazy A (Clear) Urine pH 6.0 (5.0-8.0) pH Units Ur Specific [place] 1.024 (1.010-1.025) Urine Protein 100 H (Neg-Trace) mg/dL Urine Glucose (UA) Normal (Normal) mg/dL Urine Ketones 80 H (Negative) mg/dL Urine Blood Small H (Negative) Urine Nitrite Negative (Negative) Urine Bilirubin Moderate H (Negative) Urine Urobilinogen 2.0 H (Normal) mg/dL Ur Leukocyte Esterase Negative (Negative) Urine Microscopic RBC 3-5 H (0-3) per hpf Urine Microscopic WBC 5-15 H (0-3) per hpf Ur Squamous Epith Cells Many H (None-Few) per lpf Urine Bacteria Moderate H (None-Few) per hpf Hyaline Casts Few (None-Few) per lpf Ur Culture Indicated? NO (NO) 11/21/17 11/21/17 Range/Units 12:25 13:37 WBC (4.3-11.1) K/mcL RBC (3.82-4.97) M/mcL Hgb (11.5-15.4) g/dL Hct (35.3-44.9) % MCV (83.0-100.0) fL MCH (28.0-33.3) pg MCHC (31.6-35.5) g/dL RDW (11.5-14.5) % Plt Count (140-400) K/mcL MPV (9.4-12.4) fL Immature Gran % (0-4) % Seg Neutrophils % % Lymphocytes % % Monocytes % % Eosinophils % % Basophils % % Neutrophils # (1.6-8.9) K/mcL Lymphocytes # (0.6-4.6) K/mcL Monocytes # (0.0-1.3) K/mcL Eosinophils # (0.0-0.6) K/mcL Basophils # (0.0-0.2) K/mcL PT (9.4-12.1) Seconds INR APTT (26.0-36.0) Seconds Sample Site R Radial ABG pH 7.51 H (7.32-7.45) pH Units ABG pCO2 31 L (35-45) mmHg ABG pO2 70 L (85-104) mmHg ABG HCO3 25 (21-27) mEq/L ABG Total CO2 26 (20-26) mEq/L ABG O2 Saturation 96 (95-98) % ABG Base Excess 2 (-2 to 3) mEq/L Tomer Test N/A O2 Delivery Device BiPAP Blood Gas Modality BiLevel Inspired O2 40.0 (1-15=lpm [id number]=%) Sodium (136-145) mEq/L Potassium (3.5-5.1) mEq/L Chloride (98-107) mEq/L Carbon Dioxide (23-29) mEq/L BUN (6-20) mg/dL Creatinine (0.60-1.20) mg/dL Est GFR ( Amer) (> 60) Est GFR (Non-Af Amer) (> 60) BUN/Creatinine Ratio (6-26) Glucose (70-105) mg/dL Calculated Osmolality (280-300) Lactic Acid (0.5-2.2) mmol/L Calcium (8.6-10.3) mg/dL Total Bilirubin (0.3-1.0) mg/dL Direct Bilirubin (0.0-0.2) mg/dL Indirect Bilirubin (0.0-1.2) mg/dL AST (13-39) Units/L ALT (7-52) Units/L Alkaline Phosphatase (34-104) Units/L Troponin I 0.60 H* (< 0.04) ng/mL B-Natriuretic Peptide (Less than 100) pg/mL Serum Total Protein (6.4-8.9) g/dL Albumin (3.5-5.7) g/dL Globulin (2.4-3.5) g/dL Albumin/Globulin Ratio (1.1-2.2) Urine Color (Yellow) Urine Clarity (Clear) Urine pH (5.0-8.0) pH Units Ur Specific [place] (1.010-1.025) Urine Protein (Neg-Trace) mg/dL Urine Glucose (UA) (Normal) mg/dL Urine Ketones (Negative) mg/dL Urine Blood (Negative) Urine Nitrite (Negative) Urine Bilirubin (Negative) Urine Urobilinogen (Normal) mg/dL Ur Leukocyte Esterase (Negative) Urine Microscopic RBC (0-3) per hpf Urine Microscopic WBC (0-3) per hpf Ur Squamous Epith Cells (None-Few) per lpf Urine Bacteria (None-Few) per hpf Hyaline Casts (None-Few) per lpf Ur Culture Indicated? (NO) - Radiology Data Radiology results reviewed: Yes I reviewed the patient's radiology results. Chest X-Ray 11/21/17 11:03 IMPRESSION: Airspace disease in the lung bases bilaterally that are suspicious for infiltrates. Left pleural effusion. Follow up to resolution is suggested. D/ / 11/21/2017 11:35:52 Rocio Turk MD / [facility] Interpreting Provider: Rocio Turk MD - EKG Data EKG #1 EKG attestation: Yes I reviewed and interpreted this EKG. EKG results narrative: Sinus tachycardia. 101 bpm. Nonspecific T wave abnormality. WI interval 206, QRS 85, QTC 308. EKG #2 EKG attestation: Yes I reviewed and interpreted this EKG. EKG results narrative: Sinus rhythm with first degree AV block. 93 bpm. WI interval 225, QRS 90, QTC 343. T-wave inversion noted in V2, V3. No signs of acute ST segment elevation or ischemia. Critical Care Time Critical Care Time: Yes Total Critical Care Time: 60 Attestation: The high probability of a clinically significant, sudden or life threatening deterioration of the [CV/resp] system(s) required my full and direct attention, intervention and personal management. The aggregate critical care time was [60] minutes. This time is in addition to time spent performing reported procedures but includes the following: [x] Data Review and interpretation [x] Patient assessment and monitoring of vital signs [x] Documentation [x] Medication orders and management Attestation Statement - Attestation Attestation: I examined this patient and my medical decision-making was reviewed with the Resident Physician, Dr. Lopez. I agree with the documented findings, disposition and treatment plan as described except to the extent set forth below. Pt is a 57-year-old white female who presents from her department this morning with complaint of gradually worsening shortness of breath and exertional chest pain. Patient has history of smoking and hypertension but denies any prior cardiac history or COPD. Patient states she has been feeling fevers and chills subjectively, having a cough now productive of sputum, and gradually worsening trouble breathing. Patient states that she is chest pain-free at rest but if she exerts herself or attempts to walk any distance that she developed exertional chest discomfort which feels a tightness across the front of her chest. Patient denies any lightheadedness or syncope, no diaphoresis, no abdominal pain, no nausea or vomiting or posttussive emesis, no flank or back pain. I agree with patient's physical exam findings as documented. Patient was experiencing respiratory distress with hypoxia on arrival and was brought directly to a bed for evaluation. Patient was placed on dental technician instructor continuous pulse ox was placed on nonrebreather mask with supplemental oxygen with improvement of her O2 sats during which time an EKG was obtained. EKG was sinus rhythm with no acute ischemia seen. Patient had lab values drawn and sent and chest x-ray obtained. On chest x-ray patient with pleural effusions right greater than left questionable bilateral pneumonia on chest x-ray. Patient's labs show significant leukocytosis with left shift, hypokalemia, and elevated troponin. Serial EKGs in the emergency department remained unchanged with no ischemic changes. Patient has received aspirin, potassium replacement, and was converted to BiPAP. Patient's labs concerning for non-STEMI. Case was discussed with cardiology who agreed with heparinizing the patient and requested repeat troponin and to be notified if this was elevated. Patient clinically improved on BiPAP while in the emergency department. Repeat troponin was elevated and cardiology was notified. They requested the patient be admitted to the hospitalist and they will continue to follow closely. Case was discussed with hospitalist who accepted patient for admission and further evaluation and management.
[2017-11-21] MEDS ORDERED: Ipratropium/Albuterol Neb 3 ML IH ONE (11:17)
[2017-11-21 11:29] LABS: Basophils # 0.1 K/mcL (0.0-0.2); Basophils % 0.3 %; Hematocrit 33.3 % (35.3-44.9); Hemoglobin 10.7 g/dL (11.5-15.4); Immature Granulocytes % 1.3 % (0-4); Lymphocytes # 1.6 K/mcL (0.6-4.6); Lymphocytes % 8.2 %; Mean Corpuscular HGB Conc 32.1 g/dL (31.6-35.5); Mean Corpuscular Hemoglobin 25.5 pg (28.0-33.3); Mean Corpuscular Volume 79.5 fL (83.0-100.0); Mean Platelet Volume 9.2 fL (9.4-12.4); Monocytes # 0.9 K/mcL (0.0-1.3); Monocytes % 4.8 %; Neutrophils # 16.6 K/mcL (1.6-8.9); Platelet Count 567 K/mcL (140-400); Red Blood Count 4.19 M/mcL (3.82-4.97); Red Cell Distribution Width 13.8 % (11.5-14.5); Segmented Neutrophils % 85.4 %
[2017-11-21 11:55] LABS: Troponin I 0.51 ng/mL (< 0.04)
[2017-11-21] MEDS ORDERED: *HR* Heparin 5,000 UNIT/ML VIAL IVP ONE (11:55)
[2017-11-21] MEDS ORDERED: *HR* Heparin 5,000 UNIT/ML VIAL IVP PRN (11:55)
[2017-11-21 12:02] LABS: Alanine Aminotransferase 12 Units/L (7-52); Albumin 3.4 g/dL (3.5-5.7); Albumin/Globulin Ratio 0.9 (1.1-2.2); Alkaline Phosphatase 187 Units/L (34-104); Aspartate Amino Transferase 20 Units/L (13-39); BUN/Creatinine Ratio 22 (6-26); Bilirubin,Direct 0.4 mg/dL (0.0-0.2); Bilirubin,Indirect 0.7 mg/dL (0.0-1.2); Bilirubin,Total 1.1 mg/dL (0.3-1.0); Blood Urea Nitrogen 12 mg/dL (6-20); Carbon Dioxide 23 mEq/L (23-29); Chloride 104 mEq/L (98-107); Globulin 3.8 g/dL (2.4-3.5); Glucose 141 mg/dL (70-105); Osmolality,Calculated 290 (280-300); Potassium 2.7 mEq/L (3.5-5.1); Sodium 139 mEq/L (136-145); Total Protein 7.2 g/dL (6.4-8.9); eGFR For African Americans > 60 (> 60); eGFR For Non-African Americans > 60 (> 60)
[2017-11-21 12:13] LABS: Bilirubin,Urine Moderate (Negative); Blood,Urine Small (Negative); Color,Urine Dark Yellow (Yellow); Glucose,Urine (UA) Normal (Normal); Ketones,Urine 80 mg/dL (Negative); Leukocyte Esterase,Urine Negative (Negative); Nitrite,Urine Negative (Negative); Protein,Urine 100 mg/dL (Neg-Trace); Specific Gravity,Urine 1.024 (1.010-1.025)
[2017-11-21 12:14] LABS: Clarity,Urine Hazy (Clear)
[2017-11-21] MEDS ORDERED: Azithromycin 500 MG in D5% in Water 250 ML IVPB ONE (12:14)
[2017-11-21] MEDS ORDERED: cefTRIAXone 1,000 MG in Water for inj. (sterile) 20 ML 10 ML IVP ONE (12:14)
[2017-11-21 12:15] LABS: Bacteria,Urine Moderate per hpf (None-Few); Hyaline Casts,Urine Few per lpf (None-Few); Squamous Epithelial Cell,Urine Many per lpf (None-Few)
[2017-11-21 12:41] LABS: INR 1.2; Prothrombin Time 13.5 Seconds (9.4-12.1)
[2017-11-21 12:44] LABS: Activated Partial Thrombo Time 27.6 Seconds (26.0-36.0)
[2017-11-21] MEDS: Heparin 25,000 UNIT/500 ML D5W 25,000 UNIT/500 ML BAG IVC SCH (12:55)
[2017-11-21 14:00] LABS: ABG Base Excess 2 mEq/L (-2 to 3); ABG HCO3 25 mEq/L (21-27); ABG Oxygen Saturation 96 % (95-98); ABG PCO2 31 mmHg (35-45); ABG PH 7.51 pH Units (7.32-7.45); ABG PO2 70 mmHg (85-104); ABG TCO2 26 mEq/L (20-26); Blood Gas Modality BiLevel
--- NOTE | 2017-11-21 14:40 | Internal Med History&Physical ---
Date of Encounter: 11/21/17 Time of Encounter: 14:33 Assessment and Plan (1) Acute respiratory failure with hypoxia Current visit: Yes Status: Acute Secondary to acute decompensated HF, pneumonia, NSTEMI. Supplemental Oxygen and NIV as needed Continue Rocephin/azithromycin Respiratory studies Fluid restriction Lasix 40 mg IV BID 2D-Echocardiogram Appreciate Cardiology recommendations (2) NSTEMI (non-ST elevated myocardial infarction) Current visit: Yes Status: Acute Placed on heparin drip in ED. Troponin was 0.5 and 0.6 respectively, ECG showed sinus rhythm at 93 bpm with T wave inversions on V2/V3. Telemetry monitoring shows patient BP unremarkable and HR still in 90s. - Continue heparin drip - 2D echocardiogram - Cardiology consulted, recommendations appreciated. (3) Acute decompensated heart failure Current visit: Yes Status: Acute (4) Pneumonia Current visit: Yes Status: Acute Mangement as above, follow-up cultures, follow-up blood cultures Rocephin/Azithromycin Qualifiers: Pneumonia type: due to unspecified organism Laterality: bilateral Lung location: unspecified part of lung Qualified Code(s): J18.9 - Pneumonia, unspecified organism (5) Hypokalemia Current visit: Yes Status: Acute Had decreased PO for several weeks and takes Lasix. Will replace as needed. Check BMP Q6 until potassium >3.0 Check magnesium level. (6) HTN (hypertension) Current visit: No Status: Chronic Qualifiers: Hypertension type: essential hypertension Qualified Code(s): I10 - Essential (primary) hypertension (7) DVT prophylaxis Current visit: Yes Status: Acute On heparin drip Internal Medicine - H&P: HPI History of present illness: Ms. Garcia is a 57 year old female with history of hypertension presented for shortness of breath and chest pain. She has 2 week history of orthopnea, fevers , chills, cough with green sputum. She complains of decreased appetite, dizziness and lower extremity edema. She went to PCP for symptoms yesterday and was prescribed Augment but patient not feeling better. Today she was unable to ambulate because of dyspnea. Chest pain onset was sudden with radiation to both hands with diaphoresis, palpitations, numbness and tingling of extremities. She never had pain like this in the past. In the ED patient had troponin elevated at 0.51 and then 0.60. Potassium low at 2.7, BNP elevated at 2,575, WBC 19k, tachycardic at 102 bpm, hypoxic at 82% requiring bipap therapy with tachypnea. She was able to come off bipap and transition to O2 mask but still complaints of dyspnea, denies chest pain. Past Med Surg Social Fam HX - Past Medical History Medical history: hypertension, other Psychiatric history: anxiety, bipolar, depression - Past Surgical History Surgical History: , cataract - Social History Smoking Status: Never smoker Smokeless Tobacco Status: No Alcohol use: none Drug use: none Internal Medicine - H&P: Meds Bupropion HCl [Wellbutrin Xl] 300 mg PO DAILY 01/28/17 [History] Furosemide [Lasix] 20 mg PO DAILY 01/28/17 [History] Lisinopril [Zestril] 20 mg PO BID 01/28/17 [History] Metoprolol XL (24 HR) Succ [Toprol Xl] 50 mg PO DAILY 01/28/17 [History] hydrOXYzine HCl [Hydroxyzine HCl] 50 mg PO BID PRN 01/28/17 [History] FLUoxetine HCl [Fluoxetine HCl] 40 mg PO DAILY 09/12/17 [History] Gabapentin [Neurontin] 100 mg PO TID 09/12/17 [History] Amoxicillin/Clavulanate [Augmentin] 875 mg PO BIDWM 11/21/17 [History] Quetiapine Fumarate [SEROquel] 100 mg PO HS 11/21/17 [History] 3 Allergy/AdvReac Type Severity Reaction Status Date / Time No Known Allergies Allergy Verified 11/21/17 12:09 All Systems PM: A 10-system review of systems was performed and is negative for pertinent findings except as documented above in the HPI. - Constitutional Constitutional: chills, fever(s), no night sweats - EENT Eyes: no change in vision, no discharge, no pain, no photophobia Ears: no ear discharge, no ear pain, no tinnitus Nose, mouth and throat: no dysphagia, no nasal discharge, no neck pain, no sore throat - Cardiovascular Cardiovascular ROS IM: chest pain, diaphoresis, dyspnea, edema, lightheadedness , orthopnea, palpitations, no syncope - Respiratory Respiratory: cough, dyspnea, excessive phlegm production, no wheezing - Gastrointestinal Gastrointestinal: no abdominal pain, no diarrhea, no hematemesis, no hematochezia, no melena, no nausea, no vomiting - Genitourinary Genitourinary: no change in urinary stream, no dysuria, no flank pain, no hematuria - Musculoskeletal Musculoskeletal ROS IM: no tingling - Integumentary Integumentary IM: no rash, no unusual bruising - Neurological Neurological ROS: numbness, tingling, no confusion, no convulsions, no focal weakness, no tremor(s) - Hematologic/Lymphatic Hematologic/Lymphatic: no easy bruising - Constitutional Vitals: Temp Pulse Resp BP Pulse Ox 98.5 F 89 28 137/100 93 11/21/17 10:58 11/21/17 14:14 11/21/17 14:14 11/21/17 14:14 11/21/17 14:14 General appearance: Present: A&O X 3, morbidly obese, answers questions appropriately - Head Head exam: Present: atraumatic, normocephalic - Eye Eye exam: Present: PERRL, conjuntiva pink, sclera anicteric Pupils: Present: PERRL - Neck Neck exam general surgery: Present: supple, trachea midline. Absent: lymphadenopathy - Respiratory Respiratory exam: Present: rales, respiratory distress, tachypnea. Absent: accessory muscle use, rhonchi, wheezes - Cardiovascular Cardiovascular exam: Present: RRR, +S1, +S2. Absent: diastolic murmur, gallop, JVD, rubs, systolic murmur - GI/Abdominal GI/Abdominal exam: Present: normal bowel sounds, soft, no peritoneal signs. Absent: distended, tenderness - Extremities Exam Extremities exam: Present: pedal edema, warm, radial pulses palpable and symmetrical. Absent: calf tenderness, cyanotic - Neurological Exam Neurological exam: Present: CN II-XII intact, oriented X3, no focal deficits. Absent: pronater drift, facial droop, speech deficit - Skin Skin exam: Present: dry, intact Internal Med - H&P Results - Labs CBC & Chem 7: 11/21/17 11:15 11/21/17 11:15 Labs: Short CBC 11/21/17 Range/Units 11:15 WBC 19.4 H (4.3-11.1) K/mcL Hgb 10.7 L (11.5-15.4) g/dL Hct 33.3 L (35.3-44.9) % Plt Count 567 H (140-400) K/mcL Neutrophils # 16.6 H (1.6-8.9) K/mcL BMP 11/21/17 11:15 Sodium 139 Potassium 2.7 L Chloride 104 Carbon Dioxide 23 BUN 12 Creatinine 0.55 L Glucose 141 H Calcium 9.0 Cardiac Enzymes 11/21/17 11/21/17 Range/Units 11:15 12:25 Troponin I 0.51 H* 0.60 H* (< 0.04) ng/mL Liver Function 11/21/17 Range/Units 11:15 Total Bilirubin 1.1 H (0.3-1.0) mg/dL Direct Bilirubin 0.4 H (0.0-0.2) mg/dL AST 20 (13-39) Units/L ALT 12 (7-52) Units/L Alkaline Phosphatase 187 H (34-104) Units/L Albumin 3.4 L (3.5-5.7) g/dL Urine 11/21/17 Range/Units 11:58 Urine Color Dark Yellow (Yellow) Urine Clarity Hazy A (Clear) Urine pH 6.0 (5.0-8.0) pH Units Ur Specific [place] 1.024 (1.010-1.025) Urine Protein 100 H (Neg-Trace) mg/dL Urine Glucose (UA) Normal (Normal) mg/dL - ABG Interpretation ABG results: 11/21/17 13:37 ABG pH 7.51 H ABG pCO2 31 L ABG pO2 70 L ABG HCO3 25 ABG Total CO2 26 ABG O2 Saturation 96 ABG Base Excess 2 - Impressions ITS Impressions Chest X-Ray 11/21/17 11:03 IMPRESSION: Airspace disease in the lung bases bilaterally that are suspicious for infiltrates. Left pleural effusion. Follow up to resolution is suggested. D/ / 11/21/2017 11:35:52 Rocio Turk MD / kai Interpreting Provider: Rocio Turk MD
[2017-11-21] MEDS ORDERED: hydrOXYzine pamoate 25 MG CAPSULE PO PRN (15:08)
[2017-11-21] MEDS ORDERED: Naloxone 0.4 MG/ML INJ IVP PRN (15:18)
--- NOTE | 2017-11-21 15:47 | Cardiology Consult Note ---
Date of Encounter: 11/21/17 Time of Encounter: 15:40 Assessment and Plan (1) NSTEMI (non-ST elevated myocardial infarction) Current Visit: Yes Status: Acute Acute with ischemic changes on ekg likely rate related. LHC is reasonable howver patient cannot lay flat possibly septic with elevated WBC and hypokalemia which make a LHC high risk. Continue heparin IV and ASA with treatment of underlying pneumonia (2) Pneumonia Current Visit: Yes Status: Acute Resp Insufficiency tachypnea, cough and sputum production. May Benefit form PCCM consult Qualifiers: Pneumonia type: due to unspecified organism Laterality: bilateral Lung location: unspecified part of lung Qualified Code(s): J18.9 - Pneumonia, unspecified organism (3) Hypokalemia Current Visit: Yes Status: Acute Supplement as tolerated, would need normalized K for a LHC (4) Acute respiratory failure with hypoxia Current Visit: Yes Status: Acute ICU may be more helpful with PCCM consult, discussed with Hospitalist group Discussion w patient/family: The assessment and plan as outlined above was discussed with the patient and/or family members who expressed understanding and agreement. All questions were answered. Thank you for involving us in the care of your patient. Please call with any questions. History of Present Illness Consult date: 11/21/17 Consult reason: Elevated troponins Chief complaint: SOB and chest tightness History of present illness: Ms. Garcia is a 57 year old female with hx of HTN recent shoulder surgery x 1 month presents with fever, chills, elevated WBC and cough. Troponins are elevated and patient unable to describe her chest pain in detail due to resp insufficiency/cough. She described it as RSCP burning worse with cough and laying down. She does have an elevated BNP also however no significant signs of volume overload. I have discussed with Dr. Salcido her worsening SOB and resp insufficiency with concerns she may need ICU care. In regards to her EKG anterolateral ischemic changes are noted which may be rate related/demand ischemia. She is a poor candidate for a LHC now and may require further resp care. She is unable to lay flat and in the setting of elevated WBC,cough and sputum production/pneumonia/ sepsis a LHC may be a high risk procedure at this time. If however her trops continue to elevate significantly a LHC after intubation may be needed. Will obtain a 3rd set stat now. On heparin and ASA at this time. Past Med Surg Social Fam HX - Past Medical History Medical history: hypertension, other Psychiatric history: anxiety, bipolar, depression - Past Surgical History Surgical History: , cataract - Social History Smoking Status: Never smoker Smokeless Tobacco Status: No Alcohol use: none Drug use: none Medications and Allergies Bupropion HCl [Wellbutrin Xl] 300 mg PO DAILY 01/28/17 [History] Furosemide [Lasix] 20 mg PO DAILY 01/28/17 [History] Lisinopril [Zestril] 20 mg PO BID 01/28/17 [History] Metoprolol XL (24 HR) Succ [Toprol Xl] 50 mg PO DAILY 01/28/17 [History] hydrOXYzine HCl [Hydroxyzine HCl] 50 mg PO BID PRN 01/28/17 [History] FLUoxetine HCl [Fluoxetine HCl] 40 mg PO DAILY 09/12/17 [History] Gabapentin [Neurontin] 100 mg PO TID 09/12/17 [History] Amoxicillin/Clavulanate [Augmentin] 875 mg PO BIDWM 11/21/17 [History] Quetiapine Fumarate [SEROquel] 100 mg PO HS 11/21/17 [History] 3 Allergy/AdvReac Type Severity Reaction Status Date / Time No Known Allergies Allergy Verified 11/21/17 12:09 All Systems Review: The remainder of the systems were reviewed and are negative Physical Examination Vital Signs, Last 4 Hours Resp BP 11/21/17 15:08 32 135/92 General: Conversant (Diminished biabsilar air entry), No Apparent Distress HEENT: Atraumatic, Normocephaly, Mucus Membranes Moist Neck: No JVD, Normal carotid pulses Cardiac: Reg Rate and Rhythm, Normal S1 and S2, No Murmur Lungs: Normal Breath Sounds, No Wheeze, Rales, Rhonchi Neuro: Alert and responsive, No focal deficits noted Abdomen: Soft, Non-Tender Skin: No rashes noted on visualized skin Musculoskeletal: No Chest Wall Tenderness Extremities: No Clubbing, No Cyanosis, No Edema, Normal Pulses Results 11/21/17 11:15 11/21/17 11:15 Consult Discharge Plan - Plan Referrals: Finesse Dunlap MD [Primary Care Provider] -
[2017-11-21] MEDS ORDERED: Furosemide 40 MG/4 ML VIAL IVP ONE (16:16)
[2017-11-21] MEDS ORDERED: *HR* LORazepam 2 MG/ML VIAL IVP ONE (16:19)
[2017-11-21 16:21] LABS: Magnesium 1.9 mg/dL (1.6-2.6); Phosphorous 2.4 mg/dL (2.7-4.5)
--- NOTE | 2017-11-21 16:40 | Pulmonology Consult Note ---
<Juliette Paul - Last Filed: 11/21/17 16:44> Date of Encounter: 11/21/17 Assessment and Plan (1) Acute respiratory failure with hypoxemia Current Visit: Yes Status: Acute Secondary to acute decompensated HF, pneumonia, NSTEMI. Supplemental Oxygen and NIV as needed Continue Rocephin/azithromycin Respiratory studies Fluid restriction - Lasix 40 mg IV BID -Echocardiogram stat -Appreciate Cardiology recommendations (2) HTN (hypertension) Current Visit: No Status: Chronic Qualifiers: Hypertension type: essential hypertension Qualified Code(s): I10 - Essential (primary) hypertension (3) NSTEMI (non-ST elevated myocardial infarction) Current Visit: Yes Status: Acute Placed on heparin drip in ED. Troponin was 0.5 and 0.6 respectively, ECG showed sinus rhythm at 93 bpm with T wave inversions on V2/V3. Telemetry monitoring shows patient BP unremarkable and HR still in 90s. - Continue heparin drip - 2D echocardiogram - Cardiology consulted, recommendations appreciated. (4) Acute decompensated heart failure Current Visit: Yes Status: Acute (5) Pneumonia Current Visit: Yes Status: Acute Mangement as above, follow-up cultures, follow-up blood cultures Rocephin/Azithromycin Qualifiers: Pneumonia type: due to unspecified organism Laterality: bilateral Lung location: unspecified part of lung Qualified Code(s): J18.9 - Pneumonia, unspecified organism (6) DVT prophylaxis Current Visit: Yes Status: Acute Heparin drip (7) Hypokalemia Current Visit: Yes Status: Acute Had decreased PO for several weeks and takes Lasix. Will replace as needed. Check BMP Q6 until potassium >3.0 Check magnesium level. History of Present Illness Consult date: 11/21/17 Requesting physician: Graciela Salcido Reason for consult: dyspnea Chief complaint: SOB Past Med Surg Social Fam HX - Past Medical History Medical history: hypertension Psychiatric history: bipolar, depression - Past Surgical History Surgical History: (x2), other (Lt DR ORIF 08/18/15 ) Medications and Allergies Bupropion HCl [Wellbutrin Xl] 300 mg PO DAILY 01/28/17 [History] Furosemide [Lasix] 20 mg PO DAILY 01/28/17 [History] Lisinopril [Zestril] 20 mg PO BID 01/28/17 [History] Metoprolol XL (24 HR) Succ [Toprol Xl] 50 mg PO DAILY 01/28/17 [History] hydrOXYzine HCl [Hydroxyzine HCl] 50 mg PO BID PRN 01/28/17 [History] FLUoxetine HCl [Fluoxetine HCl] 40 mg PO DAILY 09/12/17 [History] Gabapentin [Neurontin] 100 mg PO TID 09/12/17 [History] Amoxicillin/Clavulanate [Augmentin] 875 mg PO BIDWM 11/21/17 [History] Quetiapine Fumarate [SEROquel] 100 mg PO HS 11/21/17 [History] 3 Allergy/AdvReac Type Severity Reaction Status Date / Time No Known Allergies Allergy Verified 11/21/17 12:09 All Systems: The remainder of the systems were reviewed and are negative Physical Examination Vital Signs: Vital Signs, Last 4 Hours Temp Pulse Resp BP Pulse Ox 11/21/17 16:10 34 91 11/21/17 16:05 97.7 F 101 24 132/82 82 11/21/17 15:08 32 135/92 Results - Laboratory Findings CBC and BMP: 11/21/17 11:15 11/21/17 11:15 ABG ABG pH 7.51 pH Units (7.32-7.45) H 11/21/17 13:37 ABG pCO2 31 mmHg (35-45) L 11/21/17 13:37 ABG pO2 70 mmHg (85-104) L 11/21/17 13:37 ABG O2 Saturation 96 % (95-98) 11/21/17 13:37 PT/INR, D-dimer PT 13.5 Seconds (9.4-12.1) H 11/21/17 11:15 Abnormal lab findings: Abnormal lab results WBC 19.4 K/mcL (4.3-11.1) H 11/21/17 11:15 Hgb 10.7 g/dL (11.5-15.4) L 11/21/17 11:15 Hct 33.3 % (35.3-44.9) L 11/21/17 11:15 MCV 79.5 fL (83.0-100.0) L 11/21/17 11:15 MCH 25.5 pg (28.0-33.3) L 11/21/17 11:15 Plt Count 567 K/mcL (140-400) H 11/21/17 11:15 MPV 9.2 fL (9.4-12.4) L 11/21/17 11:15 Neutrophils # 16.6 K/mcL (1.6-8.9) H 11/21/17 11:15 PT 13.5 Seconds (9.4-12.1) H 11/21/17 11:15 ABG pH 7.51 pH Units (7.32-7.45) H 11/21/17 13:37 ABG pCO2 31 mmHg (35-45) L 11/21/17 13:37 ABG pO2 70 mmHg (85-104) L 11/21/17 13:37 Potassium 2.7 mEq/L (3.5-5.1) L 11/21/17 11:15 Creatinine 0.55 mg/dL (0.60-1.20) L 11/21/17 11:15 Glucose 141 mg/dL (70-105) H 11/21/17 11:15 Phosphorus 2.4 mg/dL (2.7-4.5) L 11/21/17 15:40 Total Bilirubin 1.1 mg/dL (0.3-1.0) H 11/21/17 11:15 Direct Bilirubin 0.4 mg/dL (0.0-0.2) H 11/21/17 11:15 Alkaline Phosphatase 187 Units/L (34-104) H 11/21/17 11:15 Troponin I 0.46 ng/mL (< 0.04) H* 11/21/17 15:40 B-Natriuretic Peptide 2575 pg/mL (Less than 100) H 11/21/17 11:15 Albumin 3.4 g/dL (3.5-5.7) L 11/21/17 11:15 Globulin 3.8 g/dL (2.4-3.5) H 11/21/17 11:15 Albumin/Globulin Ratio 0.9 (1.1-2.2) L 11/21/17 11:15 Urine Clarity Hazy (Clear) A 11/21/17 11:58 Urine Protein 100 mg/dL (Neg-Trace) H 11/21/17 11:58 Urine Ketones 80 mg/dL (Negative) H 11/21/17 11:58 Urine Blood Small (Negative) H 11/21/17 11:58 Urine Bilirubin Moderate (Negative) H 11/21/17 11:58 Urine Urobilinogen 2.0 mg/dL (Normal) H 11/21/17 11:58 Urine Microscopic RBC 3-5 per hpf (0-3) H 11/21/17 11:58 Urine Microscopic WBC 5-15 per hpf (0-3) H 11/21/17 11:58 Ur Squamous Epith Cells Many per lpf (None-Few) H 11/21/17 11:58 Urine Bacteria Moderate per hpf (None-Few) H 11/21/17 11:58 - Clinical Findings Intake & Output: Intake & Output 11/21/17 11/21/17 11/21/17 07:59 15:59 23:59 Intake Total 100 / 460 100 / 100 Balance 100 / 460 100 / 100 Consult Discharge Plan - Plan Referrals: Finesse Dunlap MD [Primary Care Provider] - <Germaine Stinson - Last Filed: 11/21/17 17:13> Date of Encounter: 11/21/17 All Systems: The remainder of the systems were reviewed and are negative Physical Examination Vital Signs: Vital Signs, Last 4 Hours Temp Pulse Resp BP Pulse Ox 11/21/17 16:10 34 91 11/21/17 16:05 97.7 F 101 24 132/82 82 Results - Laboratory Findings CBC and BMP: 11/21/17 11:15 11/21/17 11:15 ABG ABG pH 7.51 pH Units (7.32-7.45) H 11/21/17 13:37 ABG pCO2 31 mmHg (35-45) L 11/21/17 13:37 ABG pO2 70 mmHg (85-104) L 11/21/17 13:37 ABG O2 Saturation 96 % (95-98) 11/21/17 13:37 PT/INR, D-dimer PT 13.5 Seconds (9.4-12.1) H 11/21/17 11:15 Abnormal lab findings: Abnormal lab results WBC 19.4 K/mcL (4.3-11.1) H 11/21/17 11:15 Hgb 10.7 g/dL (11.5-15.4) L 11/21/17 11:15 Hct 33.3 % (35.3-44.9) L 11/21/17 11:15 MCV 79.5 fL (83.0-100.0) L 11/21/17 11:15 MCH 25.5 pg (28.0-33.3) L 11/21/17 11:15 Plt Count 567 K/mcL (140-400) H 11/21/17 11:15 MPV 9.2 fL (9.4-12.4) L 11/21/17 11:15 Neutrophils # 16.6 K/mcL (1.6-8.9) H 11/21/17 11:15 PT 13.5 Seconds (9.4-12.1) H 11/21/17 11:15 ABG pH 7.51 pH Units (7.32-7.45) H 11/21/17 13:37 ABG pCO2 31 mmHg (35-45) L 11/21/17 13:37 ABG pO2 70 mmHg (85-104) L 11/21/17 13:37 Potassium 2.7 mEq/L (3.5-5.1) L 11/21/17 11:15 Creatinine 0.55 mg/dL (0.60-1.20) L 11/21/17 11:15 Glucose 141 mg/dL (70-105) H 11/21/17 11:15 Phosphorus 2.4 mg/dL (2.7-4.5) L 11/21/17 15:40 Total Bilirubin 1.1 mg/dL (0.3-1.0) H 11/21/17 11:15 Direct Bilirubin 0.4 mg/dL (0.0-0.2) H 11/21/17 11:15 Alkaline Phosphatase 187 Units/L (34-104) H 11/21/17 11:15 Troponin I 0.46 ng/mL (< 0.04) H* 11/21/17 15:40 B-Natriuretic Peptide 2575 pg/mL (Less than 100) H 11/21/17 11:15 Albumin 3.4 g/dL (3.5-5.7) L 11/21/17 11:15 Globulin 3.8 g/dL (2.4-3.5) H 11/21/17 11:15 Albumin/Globulin Ratio 0.9 (1.1-2.2) L 11/21/17 11:15 Urine Clarity Hazy (Clear) A 11/21/17 11:58 Urine Protein 100 mg/dL (Neg-Trace) H 11/21/17 11:58 Urine Ketones 80 mg/dL (Negative) H 11/21/17 11:58 Urine Blood Small (Negative) H 11/21/17 11:58 Urine Bilirubin Moderate (Negative) H 11/21/17 11:58 Urine Urobilinogen 2.0 mg/dL (Normal) H 11/21/17 11:58 Urine Microscopic RBC 3-5 per hpf (0-3) H 11/21/17 11:58 Urine Microscopic WBC 5-15 per hpf (0-3) H 11/21/17 11:58 Ur Squamous Epith Cells Many per lpf (None-Few) H 11/21/17 11:58 Urine Bacteria Moderate per hpf (None-Few) H 11/21/17 11:58 - Clinical Findings Intake & Output: Intake & Output 11/21/17 11/21/17 11/21/17 07:59 15:59 23:59 Intake Total 100 / 460 100 / 100 Balance 100 / 460 100 / 100 - Attending Attestation I examined this patient and my medical decision-making was reviewed with the Resident Physician. I agree with the documented findings, disposition and treatment plan as described except to the extent set forth below. Patient seen and examined. I was called by the hospitalist to evaluate this patient that she was recently admitted to 2A and she has been having significant respiratory distress and patient was evaluated in the floor subsequently rapid response was called due to her significant distress and patient was transferred to ICU. Labs, radiology, chart personally reviewed. Agree with resident's history and physical, assessment, plan with following comments: DIRECTOR PUBLIC SERVICE: Patient follows commands, however she has significant anxiety and it is difficult to keep CPAP mask on. Pulmonary: Patient with evidence of respiratory alkalosis and changed to BiPAP mode to CPAP and lower the pressure for better tolerance and synchrony and due to her anxiety I will start her on Precedex and if this attempt failed. She will need to be intubated and she agreed with that. I will closely monitor her and goal to diuresis. Cardiovascular: Clinically patient has symptoms of pulmonary edema and they suspect heart failure, however it is unknown whether it is systolic or diastolic for acute coronary artery due to chronic due to lack of previous studies. Diuresis will be main treatment plan and need stat echo and cardiology evaluation. GI: Nutrition per dietary and GI prophylaxis per routine Heme: DVT prophylaxis per routine ID: Continue antibiotics and plan to de-escalation Renal; urine out put and renal funtion reviewed patient will need her electrolyte and recently be replaced. Endorcine: blood glucose is monitored Lines: all lines checked and no evidence of infections Skin: skin care to prevent pressure ulcers per nursing routine care I spent 45 min of Critical Care time with this patient. It involved decision making of high complexity to assess, manipulate, and support vital organ system failure and/or to prevent further life threatening deterioration of the patient' s condition. The time involved in the performance of separately reportable procedures was not counted toward critical care time. <Niels Cardoso - Last Filed: 11/21/17 18:00> Date of Encounter: 11/21/17 Time of Encounter: 16:40 Assessment and Plan (1) Acute respiratory failure with hypoxia Current Visit: Yes Status: Acute - Acute respiratory failure with no reported home oxygen requirement - Likely secondary to CHF exacerbation given elevated BNP > 2000, chest x-ray on 11/21/17 demonstrating pulmonary edema - Possible underlying pneumonia. This is difficult to interpret given diffuse haziness on chest x-ray. She does have an elevated to WBC of 19 and was tachycardic and tachypneic on presentation. - Received 1 dose of IV Lasix 40 mg with adequate urine output -No previous cardiac workup documented, cardiology is following. Appreciate recommendations - Currently tolerating CPAP with oxygenation in the high 90s Plan - Continue CPAP and supplemental oxygen as necessary - Lasix 40 mg 3 times a day, with careful potassium replacement of 40 mg twice a day. Strict I's and O's, fluid restriction 1.5 L. - There is likely a component of anxiety using the CPAP device, currently tolerating Precedex drip with no complaints - Continue ceftriaxone, azithromycin day #1 - We will order stat echocardiogram (2) Hypokalemia Current Visit: Yes Status: Acute Hypokalemia possibly secondary to Lasix use. Most recent K of 2.7 Anticipate increased Lasix for acute exacerbation of CHF Received 60 mEq before presenting to the intensive care unit Will replenish potassium and prophylactically replacing the setting of increased diuretics. 40 mEq twice a day (3) NSTEMI (non-ST elevated myocardial infarction) Current Visit: Yes Status: Acute (4) Sepsis Current Visit: Yes Status: Acute - Tachycardic, tachypneic, with an elevated WBC of 19 on presentation to emergency room. Afebrile - Vital signs likely elevated secondary to respiratory distress and hypoxia - Sepsis less likely at this time - We will however continue ceftriaxone and azithromycin for possible pneumonia as demonstrated on chest x-ray Qualifiers: Sepsis type: sepsis due to unspecified organism Qualified Code(s): A41.9 - Sepsis, unspecified organism (5) Pneumonia Current Visit: Yes Status: Acute Qualifiers: Pneumonia type: due to unspecified organism Laterality: bilateral Lung location: unspecified part of lung Qualified Code(s): J18.9 - Pneumonia, unspecified organism (6) Pleural effusion Current Visit: Yes Status: Acute As above for acute respiratory failure Etiology likely of congestive heart failure exacerbation (7) HTN (hypertension) Current Visit: Yes Status: Chronic Mildly elevated with most recent measurement of 149/89 Possible anxiety component contributing to this We will hold all medications and monitor carefully with increased Lasix dose Qualifiers: Hypertension type: essential hypertension Qualified Code(s): I10 - Essential (primary) hypertension (8) Obesity (BMI 35.0-39.9 without comorbidity) Current Visit: Yes Status: Chronic (9) Tobacco use Current Visit: Yes Status: Chronic (10) DVT prophylaxis Current Visit: Yes Status: Acute History of Present Illness Consult date: 11/21/17 Requesting physician: Wood Mixon Reason for consult: dyspnea Chief complaint: SOB History of present illness: 57-year-old female with past medical history of hypertension, bipolar disorder, depression presenting to the emergency department with chief complaint of shortness of breath, chest pain 1 week. She also reports symptoms of weakness , fevers, chills, productive cough with thick green sputum, decreased appetite, dizziness, bilateral lower extremity edema. Chest pain present on exertion and has associated diaphoresis, palpitations, numbness and tingling of extremities. In the emergency department patient was tachycardic at 102, hypoxemic 82% and was placed on BiPAP. Lab results significant for a WBC of 19, BNP of 2575, potassium of 2.7, troponin of 0.51 which is trended and most recently 0.60. Chest x-ray showed bilateral lower lobe infiltrates with a left pleural effusion. She was admitted to medicine service for further evaluation and management of acute respiratory failure secondary to likely decompensated heart failure, pneumonia, NSTEMI. She was placed on submental oxygen, Rocephin, azithromycin, Lasix 40 mg IV twice a day, heparin drip. Cardiology was consulted and do not recommend left heart catheterization this time due to inability to lie flat, possibly septic patient. During course of hospital stay, patient continued to experience worsening shortness of breath. Pulmonology was asked to evaluate the patient due to worsening shortness of breath despite use of BiPAP. Shortly before presentation to intensive care unit, rapid response was called at approximately 1700 for increased dyspnea oxygen saturation and 70s while pulling off her BiPAP. He was started on Precedex drip for anxiety and agitation and was switched to CPAP which she is currently tolerating well. She will be transferred to the intensive care unit for further evaluation and management. Past Med Surg Social Fam HX - Past Medical History Medical history: hypertension, other Psychiatric history: anxiety, bipolar, depression - Past Surgical History Surgical History: , cataract - Social History Smoking Status: Never smoker Smokeless Tobacco Status: No Alcohol use: none Drug use: none - Family History Son Age: 34 Living Status: Still Living Hx Family Cardiac Disorders: No All Systems: The remainder of the systems were reviewed and are negative Review of Systems: - Constitutional: Admits to fevers, chills, weakness. Denies weight loss, generalized fatigue - CVS: Admits to chest pain, orthopnea, edema. Denies palpitations, PND, - Pulm: Admits to shortness of breath, productive cough with green sputum. Denies hematemesis, wheezing - GI: Denies abdominal pain, anorexia, nausea, vomiting, diarrhea, constipation , melena - Skin: Denies rashes, ulcers, color changes, - Neuro: Denies RUBIO, paresthesias, focal deficits, ataxia, numbness, tingling. Physical Examination Vital Signs: Vital Signs, Last 4 Hours Temp Pulse Resp BP Pulse Ox 11/21/17 16:10 34 91 11/21/17 16:05 97.7 F 101 24 132/82 82 11/21/17 15:08 32 135/92 Gen.: Vitals noted. Mild respiratory distress. Patient appears very anxious and is pulling at BiPAP. AAOx3 HEENT: PERRL/EOMI, oropharynx clear, Normocephalic, atraumatic Cardiac: RRR, no murmur, +S1/S2 Pulmonary: Diffuse wheezing present on auscultation. equal chest expansion Abdomen: soft, nontender, BS noted, no guarding Extremities: no BLE edema appreciated, nontender calf, no cyanosis or clubbing Neuro: A&Ox3, moves all extremities, no focal deficits Psych: Appropriate mood and behavior. Appears very anxious, complaining she cannot catch her breath. Results - Laboratory Findings CBC and BMP: 11/21/17 11:15 11/21/17 11:15 ABG ABG pH 7.51 pH Units (7.32-7.45) H 11/21/17 13:37 ABG pCO2 31 mmHg (35-45) L 11/21/17 13:37 ABG pO2 70 mmHg (85-104) L 11/21/17 13:37 ABG O2 Saturation 96 % (95-98) 11/21/17 13:37 PT/INR, D-dimer PT 13.5 Seconds (9.4-12.1) H 11/21/17 11:15 Abnormal lab findings: Abnormal lab results WBC 19.4 K/mcL (4.3-11.1) H 11/21/17 11:15 Hgb 10.7 g/dL (11.5-15.4) L 11/21/17 11:15 Hct 33.3 % (35.3-44.9) L 11/21/17 11:15 MCV 79.5 fL (83.0-100.0) L 11/21/17 11:15 MCH 25.5 pg (28.0-33.3) L 11/21/17 11:15 Plt Count 567 K/mcL (140-400) H 11/21/17 11:15 MPV 9.2 fL (9.4-12.4) L 11/21/17 11:15 Neutrophils # 16.6 K/mcL (1.6-8.9) H 11/21/17 11:15 PT 13.5 Seconds (9.4-12.1) H 11/21/17 11:15 ABG pH 7.51 pH Units (7.32-7.45) H 11/21/17 13:37 ABG pCO2 31 mmHg (35-45) L 11/21/17 13:37 ABG pO2 70 mmHg (85-104) L 11/21/17 13:37 Potassium 2.7 mEq/L (3.5-5.1) L 11/21/17 11:15 Creatinine 0.55 mg/dL (0.60-1.20) L 11/21/17 11:15 Glucose 141 mg/dL (70-105) H 11/21/17 11:15 Phosphorus 2.4 mg/dL (2.7-4.5) L 11/21/17 15:40 Total Bilirubin 1.1 mg/dL (0.3-1.0) H 11/21/17 11:15 Direct Bilirubin 0.4 mg/dL (0.0-0.2) H 11/21/17 11:15 Alkaline Phosphatase 187 Units/L (34-104) H 11/21/17 11:15 Troponin I 0.46 ng/mL (< 0.04) H* 11/21/17 15:40 B-Natriuretic Peptide 2575 pg/mL (Less than 100) H 11/21/17 11:15 Albumin 3.4 g/dL (3.5-5.7) L 11/21/17 11:15 Globulin 3.8 g/dL (2.4-3.5) H 11/21/17 11:15 Albumin/Globulin Ratio 0.9 (1.1-2.2) L 11/21/17 11:15 Urine Clarity Hazy (Clear) A 11/21/17 11:58 Urine Protein 100 mg/dL (Neg-Trace) H 11/21/17 11:58 Urine Ketones 80 mg/dL (Negative) H 11/21/17 11:58 Urine Blood Small (Negative) H 11/21/17 11:58 Urine Bilirubin Moderate (Negative) H 11/21/17 11:58 Urine Urobilinogen 2.0 mg/dL (Normal) H 11/21/17 11:58 Urine Microscopic RBC 3-5 per hpf (0-3) H 11/21/17 11:58 Urine Microscopic WBC 5-15 per hpf (0-3) H 11/21/17 11:58 Ur Squamous Epith Cells Many per lpf (None-Few) H 11/21/17 11:58 Urine Bacteria Moderate per hpf (None-Few) H 11/21/17 11:58 - Clinical Findings Intake & Output: Intake & Output 11/21/17 11/21/17 11/21/17 07:59 15:59 23:59 Intake Total 100 / 460 Balance 100 / 460
[2017-11-21 16:53] LABS: Adenovirus Not Detected (Not Detect); Coronavirus 229E Not Detected (Not Detect); Coronavirus HKU1 Not Detected (Not Detect)
[2017-11-21 16:54] LABS: Bordetella Pertussis Not Detected (Not Detect); Chlamydophila pneumoniae Not Detected (Not Detect); Coronavirus NL63 Not Detected (Not Detect); Coronavirus OC43 Not Detected (Not Detect); Human Metapneumovirus Not Detected (Not Detect); Human Rhinovirus/Enterovirus Not Detected (Not Detect); Influenza A Subtype 2009 H1 Not Detected (Not Detect); Influenza A Untypeable Not Detected (Not Detect); Influenza B Not Detected (Not Detect); Mycoplasma pneumoniae Not Detected (Not Detect); Parainfluenza Virus 1 Not Detected (Not Detect); Parainfluenza Virus 2 Not Detected (Not Detect); Parainfluenza Virus 3 Not Detected (Not Detect); Parainfluenza Virus 4 Not Detected (Not Detect); Respiratory Syncytial Virus Not Detected (Not Detect)
[2017-11-21] MEDS: Dexmedetomidine HCl 400 MCG/100 ML MLS IVC SCH ×2 (20:00→23:53)
[2017-11-21] MEDS ORDERED: *HR* LORazepam 0.5 MG TABLET PO PRN (21:00)
[2017-11-21] MEDS ORDERED: Furosemide 40 MG/4 ML VIAL IVP SCH (21:00)
[2017-11-21] MEDS: Gabapentin 100 MG CAPSULE PO SCH (21:19)
[2017-11-21] MEDS: Lisinopril 20 MG TABLET PO SCH (21:19)
[2017-11-21] MEDS: Furosemide 40 MG/4 ML VIAL IVP SCH (23:52)
[2017-11-22 02:30] LABS: Basophils % 0.1 %; Eosinophils % 0.1 %; Hemoglobin 9.8 g/dL (11.5-15.4); Immature Platelets 2.8 % (1.1-6.1); Lymphocytes # 1.7 K/mcL (0.6-4.6); Lymphocytes % 8.6 %; Mean Corpuscular HGB Conc 31.6 g/dL (31.6-35.5); Mean Corpuscular Hemoglobin 25.1 pg (28.0-33.3); Mean Corpuscular Volume 79.3 fL (83.0-100.0); Mean Platelet Volume 9.3 fL (9.4-12.4); Monocytes # 0.9 K/mcL (0.0-1.3); Monocytes % 4.8 %; Neutrophils # 16.5 K/mcL (1.6-8.9); Platelet Count 507 K/mcL (140-400); Red Blood Count 3.91 M/mcL (3.82-4.97); Red Cell Distribution Width 13.9 % (11.5-14.5); Segmented Neutrophils % 85.4 %
[2017-11-22 02:52] LABS: BUN/Creatinine Ratio 18 (6-26); Blood Urea Nitrogen 12 mg/dL (6-20); Calcium 8.7 mg/dL (8.6-10.3); Carbon Dioxide 29 mEq/L (23-29); Chloride 101 mEq/L (98-107); Glucose 136 mg/dL (70-105); Osmolality,Calculated 290 (280-300); Potassium 3.1 mEq/L (3.5-5.1); Sodium 139 mEq/L (136-145); eGFR For African Americans > 60 (> 60); eGFR For Non-African Americans > 60 (> 60)
[2017-11-22] MEDS: *HR* Heparin 5,000 UNIT/ML VIAL IVP PRN ×2 (05:49→18:58)
[2017-11-22] MEDS: Dexmedetomidine HCl 400 MCG/100 ML MLS IVC SCH ×3 (06:59→20:47)
[2017-11-22] MEDS ORDERED: Potassium Phosphate 44 MEQ in 0.9 % Sodium Chloride 250 ML IVPB PRN (07:28)
[2017-11-22] MEDS: Furosemide 40 MG/4 ML VIAL IVP SCH ×3 (07:51→23:41)
[2017-11-22] MEDS: Gabapentin 100 MG CAPSULE PO SCH ×3 (07:52→21:06)
--- NOTE | 2017-11-22 08:26 | Pulmonology Progress Note ---
<Germaine Stinson M - Last Filed: 11/22/17 11:11> Date of Encounter: 11/22/17 Objective PUL Vital signs: Last Vital Signs Temp 99.6 F 11/22/17 08:00 Pulse 78 11/22/17 10:00 Resp 42 11/22/17 10:00 BP 100/63 11/22/17 10:00 Pulse Ox 93 11/22/17 10:00 Results - Laboratory Findings CBC and BMP: 11/22/17 02:23 11/22/17 02:23 ABG ABG pH 7.51 pH Units (7.32-7.45) H 11/21/17 13:37 ABG pCO2 31 mmHg (35-45) L 11/21/17 13:37 ABG pO2 70 mmHg (85-104) L 11/21/17 13:37 ABG O2 Saturation 96 % (95-98) 11/21/17 13:37 PT/INR, D-dimer PT 13.5 Seconds (9.4-12.1) H 11/21/17 11:15 Abnormal lab findings: Abnormal lab results WBC 19.3 K/mcL (4.3-11.1) H 11/22/17 02:23 Hgb 9.8 g/dL (11.5-15.4) L 11/22/17 02:23 Hct 31.0 % (35.3-44.9) L 11/22/17 02:23 MCV 79.3 fL (83.0-100.0) L 11/22/17 02:23 MCH 25.1 pg (28.0-33.3) L 11/22/17 02:23 Plt Count 507 K/mcL (140-400) H 11/22/17 02:23 MPV 9.3 fL (9.4-12.4) L 11/22/17 02:23 Neutrophils # 16.5 K/mcL (1.6-8.9) H 11/22/17 02:23 PT 13.5 Seconds (9.4-12.1) H 11/21/17 11:15 APTT 55.2 Seconds (26.0-36.0) H D 11/22/17 02:23 ABG pH 7.51 pH Units (7.32-7.45) H 11/21/17 13:37 ABG pCO2 31 mmHg (35-45) L 11/21/17 13:37 ABG pO2 70 mmHg (85-104) L 11/21/17 13:37 Potassium 3.1 mEq/L (3.5-5.1) L 11/22/17 02:23 Glucose 136 mg/dL (70-105) H 11/22/17 02:23 POC Glucose 151 (58-89) H 11/21/17 17:21 Phosphorus 2.4 mg/dL (2.7-4.5) L 11/21/17 15:40 Total Bilirubin 1.1 mg/dL (0.3-1.0) H 11/21/17 11:15 Direct Bilirubin 0.4 mg/dL (0.0-0.2) H 11/21/17 11:15 Alkaline Phosphatase 187 Units/L (34-104) H 11/21/17 11:15 Troponin I 0.46 ng/mL (< 0.04) H* 11/21/17 15:40 B-Natriuretic Peptide 1388 pg/mL (Less than 100) H 11/22/17 02:23 Albumin 3.4 g/dL (3.5-5.7) L 11/21/17 11:15 Globulin 3.8 g/dL (2.4-3.5) H 11/21/17 11:15 Albumin/Globulin Ratio 0.9 (1.1-2.2) L 11/21/17 11:15 Urine Clarity Hazy (Clear) A 11/21/17 11:58 Urine Protein 100 mg/dL (Neg-Trace) H 11/21/17 11:58 Urine Ketones 80 mg/dL (Negative) H 11/21/17 11:58 Urine Blood Small (Negative) H 11/21/17 11:58 Urine Bilirubin Moderate (Negative) H 11/21/17 11:58 Urine Urobilinogen 2.0 mg/dL (Normal) H 11/21/17 11:58 Urine Microscopic RBC 3-5 per hpf (0-3) H 11/21/17 11:58 Urine Microscopic WBC 5-15 per hpf (0-3) H 11/21/17 11:58 Ur Squamous Epith Cells Many per lpf (None-Few) H 11/21/17 11:58 Urine Bacteria Moderate per hpf (None-Few) H 11/21/17 11:58 - Microbiology Findings Microbiology Findings: Microbiology, Last 48 Hours 11/21/17 15:53 Legionella Antigen - Final Urine,Clean Catch Streptococcus pneumoniae Antigen (M - Final - Clinical Findings Intake & Output: Intake & Output 11/21/17 11/22/17 11/22/17 23:59 07:59 15:59 Intake Total 400 / 400 275 / 275 225 / 225 Output Total 1400 / 1400 750 / 750 100 / 100 Balance -1000 / -1000 -475 / -475 125 / 125 Weight 81.7 kg 80.8 kg Consult Discharge Plan - Plan Referrals: Finesse Dunlap MD [Primary Care Provider] - - Attending Attestation I examined this patient and my medical decision-making was reviewed with the Resident Physician. I agree with the documented findings, disposition and treatment plan as described except to the extent set forth below. Patient seen and examined. Labs, radiology, chart personally reviewed. Agree with resident's history and physical, assessment, plan with following comments: FLIGHT OPERATIONS COORDINATOR: Patient follows commands, Pulmonary: Acceptable oxygenation and ventilation and increased CPAP to 10 cm water and continue diuresis. Continue ICU care since patient condition could deteriorate, however she feels better. I have low suspicion for pneumonia and they believe this is mainly pulmonary edema. Cardiovascular: She still have evidence of pulmonary edema on chest x-ray, however BNP level is improving. Echocardiogram is still pending. GI: Nutrition per dietary and GI prophylaxis per routine Heme: DVT prophylaxis per routine ID: Continue antibiotics and plan to de-escalation Renal; urine out put and renal funtion reviewed Endorcine: blood glucose is monitored Lines: all lines checked and no evidence of infections Skin: skin care to prevent pressure ulcers per nursing routine care <Juliette Paul - Last Filed: 11/22/17 14:11> Date of Encounter: 11/22/17 Time of Encounter: 08:26 Assessment and Plan (1) Acute respiratory failure with hypoxemia Current Visit: Yes Status: Acute Secondary to new onset CHF as initial BNP >2000 and pulmonary edema on CXR. Cause most likely multifactorial NSTEMI and pneumonia as patient had an elevated WBC=19.3 and has had fevers overnight. Patient currently tolerating CPAP FiO2 80% with Precedex drip. This morning, patient had new onset paroxysmal A. fib that resolved with vagual maneuver. BP is low normal. Repeat CXR report states no appreciable change compared to prior study. Plan: - Lasix 40mg IV TID, can decrease when output decreases to less than 100ml/hr - Echo is still pending results - continue Heparin drip, cardio contributes elevated troponin to most likely be demand ischemia but recommend to continue heparin drip for now - continue CPAP - Continue Cephtriaxone and Azithromycin ( day 2) for possible community acquired pneumonia - Blood cultures pending - sputum cultures pending (2) HTN (hypertension) Current Visit: Yes Status: Chronic chronic HTN. currently lower end of normal BP. BB held so far today as BP is too low. Qualifiers: Hypertension type: essential hypertension Qualified Code(s): I10 - Essential (primary) hypertension (3) NSTEMI (non-ST elevated myocardial infarction) Current Visit: Yes Status: Acute Elevated troponins of 0.5 and 0.6 which trended down to 0.46. Initial ECG showed sinus rhythm at 93 bpm with T wave inversions on V2/V3. Patient was placed on a heparin drip. Discussed with cardiology and believes that left heart catheter is indicated when patient's respiratory status improves and patient is able to tolerate procedure. Plan: - Awaiting echo results - Continue heparin drip (4) Acute decompensated heart failure Current Visit: Yes Status: Acute See plan above. Continue Lasix and awaiting echo results. (5) Pneumonia Current Visit: Yes Status: Acute Possible underlying pneumonia due to patient's fever of 100.5F and elevated WBC = 19.3. Chest x-ray difficult to interpret due to diffuse haziness. Will continue antibiotics to cover for CAP with a possible 7 day course of Ceftriaxone and Azithromycin. Plan: - antibiotics Ceftriaxone and Azithromycin ( day 10/16, initiated 11/21) Qualifiers: Pneumonia type: due to unspecified organism Laterality: bilateral Lung location: unspecified part of lung Qualified Code(s): J18.9 - Pneumonia, unspecified organism (6) DVT prophylaxis Current Visit: Yes Status: Acute heparin drip (7) Hypokalemia Current Visit: Yes Status: Acute Placed on a electrolyte protocol. Patient was given KCl 40 meq IVPB x2 today. Will recheck in the morning. (8) Paroxysmal atrial fibrillation Current Visit: Yes Status: Acute New onset paroxysmal a fib most likely caused by CHF exacerbation. Brief episode of A fib with RVR, resolved by vagal maneuver. Patient is currently in NS. Patient on home dose of metoprolol. Patient on Heparin drip. Will add cardizem if a fib with RVR is sustained. Awaiting echo. Subjective Principal diagnosis: acute respiratory failure Interval history: Ms. Morle is a 57-year-old female past medical history of hypertension, anxiety, and bipolar disorder presented to the ED M with chest pain and shortness of breath found to have acute respiratory failure secondary to decompensated CHF with NSTEMI and possible suspected pneumonia. Overnight patient remained stable on CPAP but did have a fever of 100.5F. This morning, patient is currently denying chest pain, worsening shortness of breath , dizziness, nausea. Patient states that she is hungry this morning. This morning, had an brief episode of a fib with RVR, no reported CP. Resolved with vagal maneuver. Objective PUL Vital signs: Last Vital Signs Temp 99.6 F 11/22/17 07:00 Pulse 74 11/22/17 07:00 Resp 45 11/22/17 07:00 BP 110/77 11/22/17 07:00 Pulse Ox 93 11/22/17 07:00 Constitutional: Alert, answering questions appropriately, well nourished, well developed, mild respiratory distress with CPAP Head: Normocephalic, atraumatic Heart: irregular rhythm, no murmurs Lungs: course crackles on CPAP Fi O2 80% Abdomen: Soft, nondistended, nontender, no guarding or rigidity. Extremities: No clubbing, cyanosis, mild non-pitting edema, capillary refill < 2sec. Skin: Skin warm and dry, no lesions, no rashes, no jaundice Neurologic: Cranial nerves II through XII grossly intact, no focal deficits, strength 5/5 in all extremitites Psych: Cooperative with exam, cognitive function intact Results - Laboratory Findings CBC and BMP: 11/22/17 02:23 11/22/17 02:23 ABG ABG pH 7.51 pH Units (7.32-7.45) H 11/21/17 13:37 ABG pCO2 31 mmHg (35-45) L 11/21/17 13:37 ABG pO2 70 mmHg (85-104) L 11/21/17 13:37 ABG O2 Saturation 96 % (95-98) 11/21/17 13:37 PT/INR, D-dimer PT 13.5 Seconds (9.4-12.1) H 11/21/17 11:15 Abnormal lab findings: Abnormal lab results WBC 19.3 K/mcL (4.3-11.1) H 11/22/17 02:23 Hgb 9.8 g/dL (11.5-15.4) L 11/22/17 02:23 Hct 31.0 % (35.3-44.9) L 11/22/17 02:23 MCV 79.3 fL (83.0-100.0) L 11/22/17 02:23 MCH 25.1 pg (28.0-33.3) L 11/22/17 02:23 Plt Count 507 K/mcL (140-400) H 11/22/17 02:23 MPV 9.3 fL (9.4-12.4) L 11/22/17 02:23 Neutrophils # 16.5 K/mcL (1.6-8.9) H 11/22/17 02:23 PT 13.5 Seconds (9.4-12.1) H 11/21/17 11:15 APTT 55.2 Seconds (26.0-36.0) H D 11/22/17 02:23 ABG pH 7.51 pH Units (7.32-7.45) H 11/21/17 13:37 ABG pCO2 31 mmHg (35-45) L 11/21/17 13:37 ABG pO2 70 mmHg (85-104) L 11/21/17 13:37 Potassium 3.1 mEq/L (3.5-5.1) L 11/22/17 02:23 Glucose 136 mg/dL (70-105) H 11/22/17 02:23 POC Glucose 151 (58-89) H 11/21/17 17:21 Phosphorus 2.4 mg/dL (2.7-4.5) L 11/21/17 15:40 Total Bilirubin 1.1 mg/dL (0.3-1.0) H 11/21/17 11:15 Direct Bilirubin 0.4 mg/dL (0.0-0.2) H 11/21/17 11:15 Alkaline Phosphatase 187 Units/L (34-104) H 11/21/17 11:15 Troponin I 0.46 ng/mL (< 0.04) H* 11/21/17 15:40 B-Natriuretic Peptide 1388 pg/mL (Less than 100) H 11/22/17 02:23 Albumin 3.4 g/dL (3.5-5.7) L 11/21/17 11:15 Globulin 3.8 g/dL (2.4-3.5) H 11/21/17 11:15 Albumin/Globulin Ratio 0.9 (1.1-2.2) L 11/21/17 11:15 Urine Clarity Hazy (Clear) A 11/21/17 11:58 Urine Protein 100 mg/dL (Neg-Trace) H 11/21/17 11:58 Urine Ketones 80 mg/dL (Negative) H 11/21/17 11:58 Urine Blood Small (Negative) H 11/21/17 11:58 Urine Bilirubin Moderate (Negative) H 11/21/17 11:58 Urine Urobilinogen 2.0 mg/dL (Normal) H 11/21/17 11:58 Urine Microscopic RBC 3-5 per hpf (0-3) H 11/21/17 11:58 Urine Microscopic WBC 5-15 per hpf (0-3) H 11/21/17 11:58 Ur Squamous Epith Cells Many per lpf (None-Few) H 11/21/17 11:58 Urine Bacteria Moderate per hpf (None-Few) H 11/21/17 11:58 - Microbiology Findings Microbiology Findings: Microbiology, Last 48 Hours 11/21/17 15:53 Legionella Antigen - Final Urine,Clean Catch Streptococcus pneumoniae Antigen (M - Final - Clinical Findings Intake & Output: Intake & Output 11/21/17 11/22/17 11/22/17 23:59 07:59 15:59 Intake Total 400 / 400 275 / 275 Output Total 1400 / 1400 750 / 750 Balance -1000 / -1000 -475 / -475 Weight 81.7 kg
[2017-11-22] MEDS ORDERED: BuPROPion XL (24 HR) 150 MG TABLET PO SCH (09:00)
[2017-11-22] MEDS ORDERED: Metoprolol XL (24 HR) Succ 50 MG TAB.ER.24H PO SCH (09:00)
[2017-11-22] MEDS ORDERED: FLUoxetine 20 MG CAPSULE PO SCH (09:00)
[2017-11-22] MEDS: Heparin 25,000 UNIT/500 ML D5W 25,000 UNIT/500 ML BAG IVC SCH (09:32)
[2017-11-22] MEDS: Lisinopril 20 MG TABLET PO SCH ×2 (09:42→21:06)
--- NOTE | 2017-11-22 09:59 | Cardiology Consult Note ---
Date of Encounter: 11/22/17 Time of Encounter: 09:45 Assessment and Plan Discussion w patient/family: The assessment and plan as outlined above was discussed with the patient and/or family members who expressed understanding and agreement. All questions were answered. Thank you for involving us in the care of your patient. Please call with any questions. History of Present Illness Consult date: 11/22/17 History of present illness: Ms. Garcia is a 57 year old female Past Med Surg Social Fam HX - Past Medical History Medical history: hypertension, other Psychiatric history: anxiety, bipolar, depression - Past Surgical History Surgical History: , cataract - Social History Smoking Status: Never smoker Smokeless Tobacco Status: No Alcohol use: none Drug use: none - Family History Son Age: 34 Living Status: Still Living Hx Family Cardiac Disorders: No Medications and Allergies Bupropion HCl [Wellbutrin Xl] 300 mg PO DAILY 01/28/17 [History] Furosemide [Lasix] 20 mg PO DAILY 01/28/17 [History] Lisinopril [Zestril] 20 mg PO BID 01/28/17 [History] Metoprolol XL (24 HR) Succ [Toprol Xl] 50 mg PO DAILY 01/28/17 [History] hydrOXYzine HCl [Hydroxyzine HCl] 50 mg PO BID PRN 01/28/17 [History] FLUoxetine HCl [Fluoxetine HCl] 40 mg PO DAILY 09/12/17 [History] Gabapentin [Neurontin] 100 mg PO TID 09/12/17 [History] Amoxicillin/Clavulanate [Augmentin] 875 mg PO BIDWM 11/21/17 [History] Quetiapine Fumarate [SEROquel] 100 mg PO HS 11/21/17 [History] 3 Allergy/AdvReac Type Severity Reaction Status Date / Time No Known Allergies Allergy Verified 11/21/17 12:09 All Systems Review: The remainder of the systems were reviewed and are negative Physical Examination Vital Signs, Last 4 Hours Temp Pulse Resp BP Pulse Ox 11/22/17 09:00 74 39 108/78 91 11/22/17 08:00 99.6 F 74 42 125/90 92 11/22/17 07:00 99.6 F 74 45 110/77 93 11/22/17 06:00 74 41 113/78 95 Results 11/22/17 02:23 11/22/17 02:23 Lab Results 11/21/17 11/21/17 11/21/17 15:40 15:40 19:10 WBC Hgb Hct Plt Count APTT 35.1 Sodium Potassium Chloride Carbon Dioxide BUN Creatinine Glucose Calcium Magnesium 1.9 Troponin I 0.46 H* B-Natriuretic Peptide 11/22/17 11/22/17 11/22/17 02:23 02:23 02:23 WBC 19.3 H Hgb 9.8 L Hct 31.0 L Plt Count 507 H APTT 55.2 H D Sodium 139 Potassium 3.1 L Chloride 101 Carbon Dioxide 29 BUN 12 Creatinine 0.66 Glucose 136 H Calcium 8.7 Magnesium Troponin I B-Natriuretic Peptide 11/22/17 02:23 WBC Hgb Hct Plt Count APTT Sodium Potassium Chloride Carbon Dioxide BUN Creatinine Glucose Calcium Magnesium Troponin I B-Natriuretic Peptide 1388 H Consult Discharge Plan - Plan Referrals: Finesse Dunlap MD [Primary Care Provider] -
[2017-11-22] MEDS ORDERED: Aspirin Enteric Coated 81 MG Tablet PO SCH (11:45)
[2017-11-22] MEDS ORDERED: cefTRIAXone 1,000 MG in Water for inj. (sterile) 20 ML 10 ML IVP SCH (12:00)
--- NOTE | 2017-11-22 13:15 | Cardiology Progress Note ---
<Sil Sy - Last Filed: 11/22/17 13:23> Date of Encounter: 11/22/17 Time of Encounter: 09:50 Assessment and Plan (1) NSTEMI (non-ST elevated myocardial infarction) Current Visit: Yes Status: Acute Acute with ischemic changes on ekg likely rate related. She is possibly septic with elevated WBC, hypokalemia which make a LHC high risk. EKG- NSR, T wave inversion V2/V3 troponin 0.51, 0.6, 0.46 BNP 1388 (1525) Repeat CXR diffuse ground glass opacities with consolidative changes in left lung base No previous cardiac workup or history -echo result pending -Continue heparin IV, ASA, BB, diureses, treatment of underlying pneumonia -[facility] is a possibility for future however the patient cannot lay flat (2) Pneumonia Current Visit: Yes Status: Acute Being treated for possible underlying pneumonia demonstrated by CXR. Qualifiers: Pneumonia type: due to unspecified organism Laterality: bilateral Lung location: unspecified part of lung Qualified Code(s): J18.9 - Pneumonia, unspecified organism (3) A-fib Current Visit: Yes Status: Acute Paroxysmal A. fib demonstrated by EKG. [id number] score 1 -continue heparin and BB Qualifiers: Atrial fibrillation type: paroxysmal Qualified Code(s): I48.0 - Paroxysmal atrial fibrillation (4) Hypokalemia Current Visit: Yes Status: Acute Potassium 3.1. Supplement as needed because it needs to be WNL for [facility] (5) Acute respiratory failure with hypoxia Current Visit: Yes Status: Acute Currently on CPAP SPO2 91%, in the ICU. Discussion w patient/family: The assessment and plan as outlined above was discussed with the patient and/or family members who expressed understanding and agreement. All questions were answered. Thank you for involving us in the care of your patient. Please call with any questions. Subjective Principal diagnosis: acute respiratory failure Interval history: Patient developed paroxysmal A.fib. echo result pending patient denies chest pain Objective Vital Signs, Last 4 Hours Temp Pulse Resp BP Pulse Ox 11/22/17 12:00 99.3 F 74 38 107/74 91 11/22/17 11:00 73 46 93/57 92 11/22/17 10:00 78 42 100/63 93 General: Conversant, No Apparent Distress HEENT: Atraumatic Neck: No JVD Cardiac: Other (irregular) Lungs: Normal Breath Sounds Neuro: Alert and responsive Abdomen: Soft Skin: No rashes noted on visualized skin Musculoskeletal: No Chest Wall Tenderness Extremities: No Edema Results 11/22/17 02:23 11/22/17 02:23 Lab Results 11/21/17 11/21/17 11/21/17 15:40 15:40 19:10 WBC Hgb Hct Plt Count APTT 35.1 Sodium Potassium Chloride Carbon Dioxide BUN Creatinine Glucose Calcium Magnesium 1.9 Troponin I 0.46 H* B-Natriuretic Peptide 11/22/17 11/22/17 11/22/17 02:23 02:23 02:23 WBC 19.3 H Hgb 9.8 L Hct 31.0 L Plt Count 507 H APTT 55.2 H D Sodium 139 Potassium 3.1 L Chloride 101 Carbon Dioxide 29 BUN 12 Creatinine 0.66 Glucose 136 H Calcium 8.7 Magnesium Troponin I B-Natriuretic Peptide 11/22/17 11/22/17 02:23 12:18 WBC Hgb Hct Plt Count APTT 59.7 H Sodium Potassium Chloride Carbon Dioxide BUN Creatinine Glucose Calcium Magnesium Troponin I B-Natriuretic Peptide 1388 H Consult Discharge Plan - Plan Referrals: Finesse Dunlap MD [Primary Care Provider] - <Juan Bermudez - Last Filed: 11/22/17 20:22> Date of Encounter: 11/22/17 Assessment and Plan (1) NSTEMI (non-ST elevated myocardial infarction) Current Visit: Yes Status: Acute I examined this patient and my medical decision-making was reviewed with the Resident Physician. I agree with the documented findings, disposition and treatment plan as described except to the extent set forth below. 57 YOF with NSTEMI and likely CHF on cxray denies any chest pain and her SOB is slowly improving with gentle diuresis. Trops downtrending at this time with slow improvement in sx. LHC possibly once she is able to lay flat and is more euvolemic. Initial concerns in regards to pneumonia less concerning despite her hx of cough and sputum production. PCCM following and patient continues on abx. BNP down significantly but cxray still unchanged likely expected lag, will evaluate in the am once again. LHC when stable with normalized electrolytes. Continue on heparin IV for ACS and Afib (2) Pneumonia Current Visit: Yes Status: Acute Qualifiers: Pneumonia type: due to unspecified organism Laterality: bilateral Lung location: unspecified part of lung Qualified Code(s): J18.9 - Pneumonia, unspecified organism (3) Hypokalemia Current Visit: Yes Status: Acute (4) Acute respiratory failure with hypoxia Current Visit: Yes Status: Acute Discussion w patient/family: The assessment and plan as outlined above was discussed with the patient and/or family members who expressed understanding and agreement. All questions were answered. Thank you for involving us in the care of your patient. Please call with any questions. Objective Vital Signs, Last 4 Hours Pulse Resp BP Pulse Ox 11/22/17 20:04 38 94 11/22/17 20:00 70 42 85/55 92 11/22/17 19:00 70 40 97/64 91 11/22/17 18:00 70 37 89/59 93 11/22/17 17:00 74 45 108/71 92 Results 11/22/17 02:23 11/22/17 17:41 Lab Results 11/22/17 11/22/17 11/22/17 02:23 02:23 02:23 WBC 19.3 H Hgb 9.8 L Hct 31.0 L Plt Count 507 H APTT 55.2 H D Sodium 139 Potassium 3.1 L Chloride 101 Carbon Dioxide 29 BUN 12 Creatinine 0.66 Glucose 136 H Calcium 8.7 Magnesium B-Natriuretic Peptide 11/22/17 11/22/17 11/22/17 02:23 12:18 17:41 WBC Hgb Hct Plt Count APTT 59.7 H 44.4 H Sodium Potassium Chloride Carbon Dioxide BUN Creatinine Glucose Calcium Magnesium B-Natriuretic Peptide 1388 H 11/22/17 11/22/17 17:41 17:41 WBC Hgb Hct Plt Count APTT Sodium 139 Potassium 3.6 Chloride 100 Carbon Dioxide 27 BUN 16 Creatinine 0.65 Glucose 150 H Calcium 8.6 Magnesium 2.3 B-Natriuretic Peptide
[2017-11-22] MEDS ORDERED: Azithromycin 500 MG in D5% in Water 250 ML IVPB SCH (16:00)
[2017-11-22 18:55] LABS: Magnesium 2.3 mg/dL (1.6-2.6); Phosphorous 4.2 mg/dL (2.7-4.5)
[2017-11-22 18:56] LABS: BUN/Creatinine Ratio 25 (6-26); Blood Urea Nitrogen 16 mg/dL (6-20); Calcium 8.6 mg/dL (8.6-10.3); Carbon Dioxide 27 mEq/L (23-29); Chloride 100 mEq/L (98-107); Glucose 150 mg/dL (70-105); Osmolality,Calculated 292 (280-300); Potassium 3.6 mEq/L (3.5-5.1); Sodium 139 mEq/L (136-145); eGFR For African Americans > 60 (> 60); eGFR For Non-African Americans > 60 (> 60)
[2017-11-23 01:07] LABS: Hematocrit 26.9 % (35.3-44.9); Immature Platelets 3.3 % (1.1-6.1); Mean Corpuscular HGB Conc 31.6 g/dL (31.6-35.5); Mean Corpuscular Hemoglobin 25.4 pg (28.0-33.3); Mean Corpuscular Volume 80.3 fL (83.0-100.0); Mean Platelet Volume 9.7 fL (9.4-12.4); Red Blood Count 3.35 M/mcL (3.82-4.97); Red Cell Distribution Width 13.9 % (11.5-14.5)
[2017-11-23 01:08] LABS: Hemoglobin 8.5 g/dL (11.5-15.4)
[2017-11-23 01:31] LABS: BUN/Creatinine Ratio 28 (6-26); Blood Urea Nitrogen 18 mg/dL (6-20); Calcium 8.5 mg/dL (8.6-10.3); Carbon Dioxide 27 mEq/L (23-29); Chloride 101 mEq/L (98-107); Glucose 109 mg/dL (70-105); Osmolality,Calculated 288 (280-300); Potassium 3.4 mEq/L (3.5-5.1); Sodium 138 mEq/L (136-145); eGFR For African Americans > 60 (> 60); eGFR For Non-African Americans > 60 (> 60)
[2017-11-23] MEDS: Heparin 25,000 UNIT/500 ML D5W 25,000 UNIT/500 ML BAG IVC SCH (01:37)
[2017-11-23] MEDS ORDERED: Potassium Chloride Elixir 20 MEQ/15 ML UDC PO PRN (02:12)
[2017-11-23] MEDS: Dexmedetomidine HCl 400 MCG/100 ML MLS IVC SCH ×2 (03:41→11:23)
--- NOTE | 2017-11-23 08:57 | Event Note ---
Date of Encounter: 11/23/17 Time of Encounter: 08:50 This morning patient's condition is worsening and more respiratory distress and in the presence of charge nurse I have explained to the patient the next step will be invasive mechanical ventilation and she requested to call her son Yousuf. Charge nurse called him and he was very disrespectful and using profanity language against me personally and he stated he does not want any non- [place] physicians to treat his mother and charge nurse witness that. I have explained this to the patient after I talked to the hospital transactional attorney. cargo worker was called regarding the situation. I personally called her motor coach tour operator to discuss transfer to [facility] mainly for medical reasons. Patient understand her condition could deteriorate and also son understand that. I have called [facility] and talked to the transfer center and waiting for the bedside at this time.
[2017-11-23] MEDS ORDERED: 0.9 % Sodium Chloride 1,000 ML ONE (09:39)
--- NOTE | 2017-11-23 09:53 | Discharge Summary ---
Orders not resulted at time of discharge: Pending orders 11/22/17 18:00 Ionized Calcium,venous blood Routine 11/23/17 09:47 CXR, portable [XR chest 1V portable] [XR] Stat 11/24/17 04:00 Basic Metabolic Panel AM 0400 Complete Blood Count w/o Diff [HEME] AM 04011/25/17 04:00 Basic Metabolic Panel AM 0400 Complete Blood Count w/o Diff [HEME] AM 04011/26/17 04:00 Basic Metabolic Panel AM 0400 Complete Blood Count w/o Diff [HEME] AM 040 Date of Encounter: 11/26/17 Time of Encounter: 07:45 - Discharge Diagnosis (1) Acute respiratory failure with hypoxia Priority: Primary Status: Acute Comments: Patient's condition was worsening this morning and more respiratory distress with tachypnea and evidence of pulmonary edema and also patient was getting tired for that reason discussion regarding invasive mechanical intubation explained to the patient, patient wanted ICU staff to talk to her son Yousuf first before intubation which was done and in the presence of charge nurse I have explained everything multiple times to the son regarding his mother's condition and he was very disrespectful and using profanity and using racist language.interestingly enough he will not come to speak directly with me over the phone but his would relay what he was saying and the has no problem understanding what I was telling her and I could hear him in the background. I have personally called hospital's traffic law attorney and explained to him the situation. Subsequently I have discussed the situation with the restaurant busser and patient will need cardiac workup and arterial catheterization, however due to her respiratory status that was not done and charge nurse explained to Yousuf and his regarding transfer to [facility] explained situation to the accepting physician and he requested appropriately patient to be intubated for the transportation and I went to operating room to talk to the anesthesiologist for intubation which was done and that was at the bedside with significant hypoxia after intubation and then patient was placed on a ventilator and I had her on 100% FiO2 and PEEP was adjusted to 12 cm water with changing tidal volume and respiratory rate to the point that oxygen saturation and ABG with acceptable range. I have given her also morbid Lasix for diuresis as well as patient was very agitated and more sedation was given to her with successful response. Replacing electrolytes and continue current antibiotics for suspected pneumonia, even though I feel this is primarily pulmonary edema. I have also discussed the case with director social commercial sales consultant. His refer to charge nurse documentation for more details about overall situation. I have personally been on the bedside with the patient all this time until she was transferred out to [place] ICU to [facility]. Of note, I have explained to the patient when she was still alert and oriented and awake about interaction with her son and from her facial expression she was not in agreement, however verbally she did not projected or accepted his comments. I have also told her she would be transferred to [facility] for further management and she was in agreement with that. Critical care performed: Time is exclusive of separately billable procedures. Time includes: direct patient care, patient reassessment, coordination of patient care, interpretation of data (laboratory data, radiology data, and respiratory data), review of patient's medical records, medical consultation and documentation of patient care. Critical care time: 150 minutes. (2) Pulmonary edema cardiac cause Priority: Secondary Status: Acute Comments: This is his worsening and chest x-ray shows bilateral infiltrates and ABG is acceptable. Since this is most likely cardiogenic in origin this will not meet ARDS definition. (3) Pneumonia Priority: Secondary Status: Suspected Comments: I still suspect this is less likely and will continue empiric antibiotics for coverage Qualifiers: Pneumonia type: due to unspecified organism Laterality: bilateral Lung location: unspecified part of lung Qualified Code(s): J18.9 - Pneumonia, unspecified organism (4) NSTEMI (non-ST elevated myocardial infarction) Priority: Primary Status: Acute Comments: Appreciate cardiology's input and patient will need cardiac catheterization and restaurant busser discussed this with the accepting physician at [facility] - Discharge Medications Home Medications: Bupropion HCl [Wellbutrin Xl] 300 mg PO DAILY 01/28/17 [History] Furosemide [Lasix] 20 mg PO DAILY 01/28/17 [History] Lisinopril [Zestril] 20 mg PO BID 01/28/17 [History] Metoprolol XL (24 HR) Succ [Toprol Xl] 50 mg PO DAILY 01/28/17 [History] hydrOXYzine HCl [Hydroxyzine HCl] 50 mg PO BID PRN 01/28/17 [History] FLUoxetine HCl [Fluoxetine HCl] 40 mg PO DAILY 09/12/17 [History] Gabapentin [Neurontin] 100 mg PO TID 09/12/17 [History] Amoxicillin/Clavulanate [Augmentin] 875 mg PO BIDWM 11/21/17 [History] Quetiapine Fumarate [SEROquel] 100 mg PO HS 11/21/17 [History] Allergies/Adverse Reactions: 3 Allergy/AdvReac Type Severity Reaction Status Date / Time No Known Allergies Allergy Verified 11/21/17 12:09 Procedures and tests throughout hospitalization: Intubation before transfer patient Labs on day of discharge: Labs from last 24 hours 11/23/17 11/23/17 11/23/17 06:52 00:58 00:58 WBC RBC Hgb Hct MCV MCH MCHC RDW Plt Count MPV Immature Plt Fraction APTT 52.6 H 62.5 H Sodium 138 Potassium 3.4 L Chloride 101 Carbon Dioxide 27 BUN 18 Creatinine 0.65 Est GFR ( Amer) > 60 Est GFR (Non-Af Amer) > 60 BUN/Creatinine Ratio 28 H Glucose 109 H Calculated Osmolality 288 Calcium 8.5 L Phosphorus Magnesium 11/23/17 11/22/17 11/22/17 00:58 17:41 17:41 WBC 20.1 H RBC 3.35 L Hgb 8.5 L Hct 26.9 L MCV 80.3 L MCH 25.4 L MCHC 31.6 RDW 13.9 Plt Count 482 H MPV 9.7 Immature Plt Fraction 3.3 APTT Sodium 139 Potassium 3.6 Chloride 100 Carbon Dioxide 27 BUN 16 Creatinine 0.65 Est GFR ( Amer) > 60 Est GFR (Non-Af Amer) > 60 BUN/Creatinine Ratio 25 Glucose 150 H Calculated Osmolality 292 Calcium 8.6 Phosphorus 4.2 Magnesium 2.3 11/22/17 11/22/17 17:41 12:18 WBC RBC Hgb Hct MCV MCH MCHC RDW Plt Count MPV Immature Plt Fraction APTT 44.4 H 59.7 H Sodium Potassium Chloride Carbon Dioxide BUN Creatinine Est GFR ( Amer) Est GFR (Non-Af Amer) BUN/Creatinine Ratio Glucose Calculated Osmolality Calcium Phosphorus Magnesium - Impressions ITS Impressions Chest X-Ray 11/22/17 05:35 IMPRESSION: Stable chest. Cardiomegaly. Bilateral pulmonary opacities which could represent edema or infiltrates. Left effusion. Follow up to resolution is suggested. D/ / 11/22/2017 08:20:12 Rocio Turk MD / chelly Interpreting Provider: Rocio Turk MD Chest X-Ray 11/22/17 12:00 IMPRESSION: 1. Diffuse interstitial and ground-glass opacities throughout the lungs with consolidative changes infrahilar regions and left lung base typical of congestive heart failure, not appreciably changed compared with study performed earlier today. 2. Cardiomegaly. 3. Small volume bilateral pleural effusion is evident. 4. Wires and cardiac leads overlying the chest could obscure an underlying finding. 5. 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 6. No pneumothorax. D/ / Rashel Rico / Rashel Rico Interpreting Provider: Rashel Rico Chest X-Ray 11/23/17 07:59 IMPRESSION: Stable chest. D/ / 11/23/2017 09:37:26 Finesse Mir MD / Madyson Villalobos Interpreting Provider: Finesse Mir MD Date of admission: 11/21/17 15:18 Primary care physician: Finesse Dunlap MD Consults: 11/21/17 16:16 Consult to Pulmonology [CONS] Stat Consulting Provider: [facility] [place] Reason for Consult: acute respiratory failure Call Completed: Yes - Patient Status Disposition: Transfer Other Condition: Serious - Discharge Instructions Instructions: Heart Failure (DC), Atrial Fibrillation (DC), Acute Respiratory Distress Syndrome (DC) Follow Up With: Finesse Dunlap MD [Primary Care Provider] - - Diet and Activity Activity: other (She is intubate) Diet: other (she will need tube feed) - Hospital Course Hospital course: Ms. Garcia is a 57 year old female was admitted to the hospital for acute hypoxic respiratory failure, non-ST elevation [place], pulmonary edema and pneumonia. Patient was on the floor and her respiratory status was worsening for that reason she was transferred to ICU and initially she responded to diuresis with CPAP and Precedex drip, however her condition did not improve and cardiology was consulted. Please refer to cardiology note for further detail. Please refer and diagnosis about events that happened until patient was transferred out of ICU. - Time Spent with Patient Total time spent providing and/or coordinating discharge services: Greater than 30 minutes (Please refer to the critical care time that was spend 150 minutes) Physical Examination Vital Signs: Vital Signs, Last 4 Hours Temp Pulse Resp BP Pulse Ox 11/23/17 08:00 78 46 97/80 88 11/23/17 07:43 48 111/84 91 11/23/17 07:00 99.2 F 75 30 111/84 93 11/23/17 06:00 82 42 108/73 85 General appearance: appears uncomfortable (Before intubation) Eyes: nonicteric ENT: oropharynx dry Neck: supple Effort: very labored Auscultation: bilateral: rales Percussion: bilateral: not dull Cardiovascular: regular rate and rhythm Gastrointestinal: normoactive bowel sounds, non-distended Extremities: edema normal mental status (Before intubation) anxious
[2017-11-23] MEDS ORDERED: *HR* FentaNYL (PF) 100 MCG/2 ML VIAL ONE ×2 (09:54→10:09)
--- NOTE | 2017-11-23 09:56 | Anesthesia Progress Note ---
Date of Encounter: 11/23/17 Time of Encounter: 09:40 Anesthesia Note - Note Note: 11/23/17 09:54 Called to evaluate ICU patient for tracheal intubation for impending respiratory failure. Discussed with patient and agrees to intubation. Etomidate 16 mg, succinylcholine 100 mg give. MAC 3 blade and 7.5 ETT tube placed, Positive ETCO2 and breath sounds bilateral equal.
[2017-11-23] MEDS ORDERED: Furosemide 40 MG/4 ML VIAL ONE (10:00)
[2017-11-23] MEDS ORDERED: FentaNYL (PF) 1,000 MCG in 0.9 % Sodium Chloride 80 ML IVC SCH (10:00)
[2017-11-23] MEDS ORDERED: Furosemide 40 MG/4 ML VIAL IVP ONE (10:13)
[2017-11-23] MEDS ORDERED: *HR* FentaNYL (PF) 100 MCG/2 ML VIAL IVP ONE ×2 (10:13)
[2017-11-23 10:28] VITALS: BP 111/72
[2017-11-23 10:35] LABS: ABG Base Excess 4 mEq/L (-2 to 3); ABG HCO3 29 mEq/L (21-27); ABG Oxygen Saturation 98 % (95-98); ABG PCO2 47 mmHg (35-45); ABG PO2 114 mmHg (85-104); ABG TCO2 31 mEq/L (20-26); Blood Gas PEEP 12 cm H2O; Blood Gas Respiration Rate 16; Blood Gas VT 500 cc
--- NOTE | 2017-11-23 10:44 | Event Note ---
Date of Encounter: 11/23/17 Time of Encounter: 10:41 - Cardiology Event Note 57-year-old female presents with rest for insufficiency with peak troponin of .6 dropping to .4 recently. No previous history of coronary artery disease. Patient had cough phlegm production and was unable to lay flat for a left heart. With down trending cardiac enzymes patient was to be diuresis and treated with antibiotics for possible pneumonia in anticipation of a left heart cath. This morning she continues to be an respiratory insufficiency unable to lay flat. Patients family was contacted for possible intubation and ultimately a left heart cath. Patients family preferred transfer to tertiary care facility at this point
[2017-11-23] MEDS ORDERED: *HR* Succinylcholine 200 MG/10 ML VIAL IVP ONE (11:29)
[2017-11-23] MEDS ORDERED: *HR* Midazolam HCl 2 MG/2 ML VIAL IV ONE (11:29)
[2017-11-23] MEDS ORDERED: *HR* Etomidate 40 MG/20 ML VIAL IVP ONE (11:29)
[2017-11-23] MEDS ORDERED: *HR* Midazolam HCl 5 MG/5 ML VIAL IVP ONE (11:29)
[2017-11-25 09:29] LABS: Mycoplasma pneumoniae IgG 0.82 U/L (<=0.09)
--- NOTE | 2017-11-26 16:17 | Electrocardiograph Report ---
[place] [id number] Test Date: 2017-11-21 Pat Name: Maria Teresa Garcia Department: 103 Room: [facility] Gender: F Desk Attendant: : 1960 Requested By: Esther Diaz Order Number: [id number] Reading MD: Meena Casanova Measurements Intervals [place] Rate: 93 P: 35 AK: 225 QRS: 12 QRSD: 90 T: 106 QT: 292 QTc: 343 Interpretive Statements SINUS RHYTHM WITH FIRST DEGREE AV BLOCK NONSPECIFIC ST & T-WAVE ABNORMALITY Electronically Signed On 11-26-2017 15:41:24 EDT by Meena Casanova
--- NOTE | 2017-11-26 21:06 | Electrocardiograph Report ---
[place] [address] Test Date: 2017-11-21 Pat Name: Maria Teresa Garcia Department: 103 Room: [facility] Gender: F Welfare Adviser: : 1960 Requested By: Sheryl Chandler Order Number: [id number] Reading MD: Breezy Collins DO Measurements Intervals [place] Rate: 101 P: 37 [place]: 206 QRS: 15 QRSD: 85 T: 114 QT: 250 QTc: 308 Interpretive Statements SINUS TACHYCARDIA NONSPECIFIC ST & T-WAVE ABNORMALITY Electronically Signed On 11-26-2017 21:05:17 EDT by Breezy Collins DO
--- NOTE | 2017-11-26 22:21 | Electrocardiograph Report ---
[address] [place] [address] Test Date: 2017-11-22 Pat Name: Maria Teresa Garcia Department: 109 Room: [facility] Gender: F [employer] Teacher: CCCMICHAELA : 1960 Requested By: Juliette Paul Order Number: [id number] Reading MD: Breezy Collins DO Measurements Intervals [place] Rate: 111 P: [place]: 0 QRS: 5 QRSD: 78 T: 152 QT: 357 QTc: 423 Interpretive Statements ATRIAL FIBRILLATION WITH RAPID VENTRICULAR RESPONSE ST DEVIATION AND MODERATE T-WAVE ABNORMALITY, CONSIDER LATERAL ISCHEMIA Electronically Signed On 11-26-2017 22:20:03 EDT by Breezy Collins DO
== END 2017-11-23 11:30 | disposition other institution (70) | DRG 280 ==
LOC: 2ANU 10:51 → EMEROO 10:51 → 2ANU 15:13 → ICNU 17:06
PROVIDERS: ADMIT Student in an Organized Health Care Education/Training Program; ATTEND Family Medicine